=== PATIENT | male | born 1945 | race Caucasian/White ===

== ENCOUNTER 2017-08-23 11:00 | Inpatient (IN) ==
[2017-08-23] MEDS ORDERED: ALBUTEROL/IPRATROPIUM 2.5mg-0.5mg/3ml NEB AEROSOL ONE (11:22)
--- NOTE | 2017-08-23 11:23 | Emergency Department Report ---
General Adult HPI - General Chief complaint: Shortness of Breath/Dyspnea Stated complaint: breathing difficulties Time Seen by Provider: 08/23/17 11:21 Source: patient, EMS Mode of arrival: EMS Limitations: no limitations - History of Present Illness HPI narrative: 72-year-old male presents to the emergency department with a chief complaint of dyspnea. Patient noted onset of symptoms approximately 8:00 this morning upon awakening. Patient states his symptoms increased throughout the day. Patient was 80% on room air with arrival of EMS. Patient has noted a productive cough of clear phlegm over the past several days. He denies any pain or discomfort. Patient was placed on CPAP by EMS prior to arrival to the emergency department with some improvement of symptoms. Patient denies any other complaints or associated symptoms. He was at home when his symptoms began. Symptoms have been persistent in nature since onset. - Related Data Home Medications Medication Instructions Recorded Confirmed Amiodarone [Pacerone] 200 mg PO DAILY #0 08/18/08 08/23/17 Carvedilol 12.5 mg PO DAILY #0 08/18/08 08/23/17 Digoxin 125 mcg PO DAILY #0 08/18/08 08/23/17 Spironolactone [Aldactone] 25 mg PO DAILY #0 08/18/08 08/23/17 diazePAM [Diazepam] 10 mg PO DAILY PRN #0 08/18/08 08/23/17 Albuterol Sulfate 2.5 mg AEROSOL Q4H PRN 08/23/17 08/23/17 Aspirin/Calcium Carbonate/Mag 325 mg PO HS 08/23/17 08/23/17 [Aspirin Buffered 325 mg Tab] Furosemide [Lasix] 40 mg PO BID 08/23/17 08/23/17 Gemfibrozil [Lopid] 600 mg PO BID 08/23/17 08/23/17 Potassium Chloride 10 meq PO DAILY 08/23/17 08/23/17 Allergies Allergy/AdvReac Type Severity Reaction Status Date / Time No Known Drug Allergies Allergy Unknown Verified 08/23/17 12:04 Review of Systems Constitutional: Denies: fever, chills Eyes: Denies: eye pain, vision change ENT: Denies: ear pain, throat pain Cardiovascular: Denies: chest pain, palpitations Respiratory: Reports: cough, dyspnea. Denies: wheezes Gastrointestinal: Denies: abdominal pain, nausea, vomiting, diarrhea Genitourinary: Denies: urgency, dysuria Musculoskeletal: Denies: back pain, arthralgia Integumentary: Denies: erythema, rash Neurological: Denies: headache, numbness Psychiatric: Denies: anxiety, depression Endocrine: Denies: fatigue, polydipsia Hematological/Lymphatic: Denies: easy bleeding, easy bruising Allergic/Immunologic: Denies: facial swelling, urticaria PFSH Patient Stated Medical History Cerebrovascular Accident Yes Cataracts Yes Cardiac Arrhythmia Yes: AFIB Congestive Heart Failure Yes Hypertension Yes Myocardial Infarction Yes Diabetes Mellitus Type 2 Yes Surgical History: CABG Family History: Review and noncontributory - Social History Smoking status: Never smoker Substance use type: does not use Alcohol intake frequency: does not drink Physical Exam - Limitations Limitations: no limitations - General General appearance: alert, in distress (mild respiratory distress) - Normal Exams: Head:: Normocephalic without trauma Eyes:: Pupils are PERRLA w/ EOMI, No scleral icterus, irritation, or foreign bodies noted ENMT:: No facial trauma, nasal exudates, pharyngeal erythema, or exudates are noted Dental: No fractured, loose, or missing teeth noted Neck:: Full range of motion, without adenopathy, JVD, bruits or thyromegaly Chest/Respirations:: Clear all villalobos (diminished lung sounds throughout), with good airflow, and symmetry bilaterally Cardiovascular:: Regular rate and rhythm, without murmur or gallop, Pulses 2+ all extremities, capillary refill, <2 seconds all extremities Abdomen:: Bowel sounds positive, soft, non-tender, non-distended, no hepatosplenomegaly, masses or bruits noted Lymphatic:: No lymphadenopathy, or lymphedema noted (1+ bilateral lower extremity edema.) Musculoskeletal:: No tenderness, or deformity noted, good range of motion, all extremities Integumentary:: No rashes, hives, or bruising noted, hair and nails, without abnormality Neurological:: Patient is alert, and oriented, cranial nerves, motor/sensory/ cerebellar, exams w/o gross deficits, to observation Psychiatric:: Patient exhibits, appropriate attention, emotion and affect Course Vital Signs Temperature 96.8 F 08/23/17 11:00 Pulse Rate 71 08/23/17 11:00 Respiratory Rate 34 H 08/23/17 11:00 Blood Pressure 164/70 H 08/23/17 11:00 Pulse Oximetry 89 L 08/23/17 11:00 Temperature 96.4 F L 08/23/17 14:20 Pulse Rate 70 08/23/17 16:32 Respiratory Rate 24 08/23/17 16:32 Blood Pressure 120/76 08/23/17 16:02 Pulse Oximetry 97 08/23/17 16:32 Medical Decision Making - [facility] Narrative Medical decision making narrative: Labs / imaging were discussed in detail with the patient and questions are answered. Patient is placed on BiPAP in the emergency department with improvement of symptoms. Patient is given DuoNeb treatments upon arrival with improvement of symptoms. Patient is discussed with Dr. Mendes and admitted to the ICU to the hospitalist service in improved condition. Patient was given Lasix 20 mg IM 1. Patient was given Rocephin/Zithromax intravenously with improvement of symptoms. Patient is admitted to the ICU in improved condition. Patient is in agreement with the current plan of management. Patient requests to be a DO NOT RESUSCITATE in the emergency department. Sepsis was considered at 1227 and Rocephin and Zithromax were ordered. Patient did not have a lactate greater than 4 and was not hypotensive in the ED. - Differential Diagnosis COPD exacerbation, pneumonia, CHF, viral syndrome - Lab Data Result diagrams: 08/23/17 11:07 08/23/17 11:07 Lab Results 08/23/17 08/23/17 08/23/17 Range/Units 11:07 11:07 11:46 WBC 13.7 H (4.5-11.0) T/MM3 RBC 5.12 (4.50-5.90) M/MM3 Hgb 15.7 (13.5-17.5) GM/DL Hct 50.7 (41-53) % MCV 99.0 (80-100) UM3 MCH 30.7 (26-34) UUG MCHC 31.0 (31-37) GM/DL RDW Std Deviation 47.1 (36.9-50.2) FL Plt Count 257 (130-400) T/MM3 MPV 11.4 (9.4-12.4) UM3 Immature Gran % (Auto) 0.4 (0.0-0.5) % Neut % (Auto) 67.8 H (33-66) % Lymph % (Auto) 20.9 L (23-45) % [place] % (Auto) 8.8 (0-9.0) % Eos % (Auto) 1.9 (0-4) % Baso % (Auto) 0.2 (0-2) % Neut # (Auto) 9.3 H (1.8-7.7) T/MM3 Lymph # (Auto) 2.9 (1-4.8) T/MM3 [place] # (Auto) 1.2 H (0-0.8) T/MM3 Eos # (Auto) 0.3 (0-0.5) T/MM3 Baso # (Auto) 0.0 (0-0.2) T/MM3 Abs Immat Gran (auto) 0.05 H (0.00-0.03) T/MM3 Turbidity < 20 (0-20) Sodium 146 H (134-144) MEQ/L Potassium 4.6 (3.6-5) MEQ/L Chloride 102 (98-107) MEQ/L Carbon Dioxide 32 H (22-30) MEQ/L Anion Gap 12 (5-15) MEQ/L BUN 18.0 (9-20) MG/DL Creatinine 0.7 L (0.8-1.5) MG/DL GFR Calculation 110 BUN/Creatinine Ratio 26 (6-26) RATIO Glucose 217 H (75-110) MG/DL Calculated Osmolality 290 H (261-280) MOSM/KG Calcium 9.4 (8.4-10.2) MG/DL Total Bilirubin 0.80 (0.20-1.30) MG/DL Icterus Index < 2 (0-7) AST 75 H (17-59) U/L ALT 86 H (21-72) U/L Alkaline Phosphatase 74 (38-126) U/L Troponin I 0.068 (0-0.12) ng/ml B-Natriuretic Peptide 722 H (0-175) pg/mL Total Protein 7.8 (6.3-8.2) G/DL Albumin 4.6 (3.5-5.0) G/DL Globulin 3.2 (2.4-3.6) G/DL Albumin/Globulin Ratio 1.4 (1.1-2.2) RATIO Plasma Lactate Cancelled 2.3 H Procalcitonin NG/ML Specimen Hemolysis < 15 (0-25) 12/24/ Range/Units 11:46 WBC (4.5-11.0) T/MM3 RBC (4.50-5.90) M/MM3 Hgb (13.5-17.5) GM/DL Hct (41-53) % MCV (80-100) UM3 MCH (26-34) UUG MCHC (31-37) GM/DL RDW Std Deviation (36.9-50.2) FL Plt Count (130-400) T/MM3 MPV (9.4-12.4) UM3 Immature Gran % (Auto) (0.0-0.5) % Neut % (Auto) (33-66) % Lymph % (Auto) (23-45) % [place] % (Auto) (0-9.0) % Eos % (Auto) (0-4) % Baso % (Auto) (0-2) % Neut # (Auto) (1.8-7.7) T/MM3 Lymph # (Auto) (1-4.8) T/MM3 [place] # (Auto) (0-0.8) T/MM3 Eos # (Auto) (0-0.5) T/MM3 Baso # (Auto) (0-0.2) T/MM3 Abs Immat Gran (auto) (0.00-0.03) T/MM3 Turbidity (0-20) Sodium (134-144) MEQ/L Potassium (3.6-5) MEQ/L Chloride (98-107) MEQ/L Carbon Dioxide (22-30) MEQ/L Anion Gap (5-15) MEQ/L BUN (9-20) MG/DL Creatinine (0.8-1.5) MG/DL GFR Calculation BUN/Creatinine Ratio (6-26) RATIO Glucose (75-110) MG/DL Calculated Osmolality (261-280) MOSM/KG Calcium (8.4-10.2) MG/DL Total Bilirubin (0.20-1.30) MG/DL Icterus Index (0-7) AST (17-59) U/L ALT (21-72) U/L Alkaline Phosphatase (38-126) U/L Troponin I (0-0.12) ng/ml B-Natriuretic Peptide (0-175) pg/mL Total Protein (6.3-8.2) G/DL Albumin (3.5-5.0) G/DL Globulin (2.4-3.6) G/DL Albumin/Globulin Ratio (1.1-2.2) RATIO Plasma Lactate Procalcitonin < 0.05 NG/ML Specimen Hemolysis (0-25) - Radiology Data Chest x-ray: Potential fluid overload pattern with probable R sided infiltrate. - EKG Data EKG #1 EKG results narrative: Electronic ventricular pacemaker. 72 bpm. No STEMI. Critical Care Time Critical Care Time: Yes Total Critical Care Time: 47 Attestation: 47 minutes of critical care time was assessed to the patient as the patient was placed on BiPAP and maintained on BiPAP during his emergency department stay. Patient required repeated assessment at the bedside, complex medical decision making, and had potential for decompensation. Critical care time was spent treating the patient, documenting the medical record, updating family, and making telephone calls on the patient's behalf. Disposition Clinical Impression: Community acquired pneumonia Qualifiers: Laterality: unspecified laterality Qualified Code(s): J18.9 - Pneumonia, unspecified organism Disposition: 02 To [facility] [place] Acute Care Condition: Stable for Transport Time of Disposition: 12:30 (Admit. Dr. Mendes. ) - Seen By: physician
[2017-08-23] MEDS ORDERED: AZITHROMYCIN IV 500 MG in NS 250ml 250 ML IV ONE (12:27)
[2017-08-23] MEDS ORDERED: FUROSEMIDE 20 MG/2 ML INJECTION IVP ONE (12:27)
[2017-08-23] MEDS ORDERED: CEFTRIAXONE (ER USE ONLY) 1 GM in NS 100 ML IV ONE (12:27)
[2017-08-23] MEDS: SALINE FLUSH 10ml SYRINGE IVF PRN (13:12)
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
[2017-08-23] MEDS ORDERED: NS 1,000 ML IV SCH (14:45)
[2017-08-23] MEDS: ALBUTEROL/IPRATROPIUM 2.5mg-0.5mg/3ml NEB AEROSOL SCH ×2 (15:32→20:10)
[2017-08-23] MEDS: 1/2 NS 1,000 ML IV SCH (16:00)
[2017-08-23] MEDS: BUDESONIDE INH.SOLN 0.5mg/2ml NEB AEROSOL SCH (20:10)
[2017-08-24] MEDS: 1/2 NS 1,000 ML IV SCH (03:01)
[2017-08-24] MEDS: ALBUTEROL/IPRATROPIUM 2.5mg-0.5mg/3ml NEB AEROSOL SCH ×4 (06:55→22:10)
[2017-08-24] MEDS: BUDESONIDE INH.SOLN 0.5mg/2ml NEB AEROSOL SCH ×2 (06:55→22:10)
[2017-08-24] MEDS: SPIRONOLACTONE 25 MG TABLET PO SCH (10:36)
[2017-08-24] MEDS: CARVEDILOL 12.5 MG TABLET PO SCH (10:37)
[2017-08-24] MEDS: AMIODARONE 200 MG TABLET PO SCH (10:37)
[2017-08-24] MEDS: DIGOXIN 125 MCG TABLET PO SCH (10:37)
[2017-08-24] MEDS ORDERED: DEXTROSE 50% SYRINGE 50ml (1 AMP) IVP PRN (12:17)
[2017-08-24] MEDS ORDERED: GLUCOSE ORAL GEL 40% 37.5gm PO PRN (12:17)
--- NOTE | 2017-08-24 12:24 | Progress Note ---
- Date 08/24/17 Subjective: The patient is seen today in his room. He required BiPAP overnight. When I talk to him he was on 5 L high flow nasal cannula with saturations in the mid 90s. Yesterday he only required 2 L. He feels like he breathes better on the BiPAP. He continues to have a nonproductive cough which is chronic. He denies chest pain. He denies pain anywhere. He states he ate a good breakfast. He denies any nausea or diarrhea. He has history of CABG requiring veins to be taken from his bilateral lower arms and therefore has rate difficulty with obtaining blood draws. He states usually his blood is drawn from his hand. Recently we have been doing just fingersticks which I think has been making the blood work inaccurate. Objective Vital signs: Temperature 97.8 F 08/24/17 00:00 Pulse Rate 69 08/24/17 10:37 Respiratory Rate 34 H 08/24/17 11:14 Blood Pressure 195/73 H 08/24/17 07:01 Pulse Oximetry 97 08/24/17 11:14 Height/Weight/BMI: Height 1.78 m Weight 100.3 kg Body Mass Index 31.7 Comments: Blood pressure 148/66, pulse 69, O2 sat 98% on BiPAP GEN-alert, 3-4 word conversational dyspnea HEENT-sclera anicteric, oropharynx is dry, possibly from BiPAP NECK-supple, no JVD CV-regular rate and rhythm, paced rhythm CHEST-mild crackles in the bases, no rhonchi ABD-soft, obese, nontender with positive bowel sounds -no Peacock EXT-mild bilateral pedal edema, more so on the left than the right and this is chronic NEURO-no focal deficits SKIN-warm and dry Results - Labs CBC & Chem 7: 08/24/17 06:20 08/24/17 07:24 Labs: Blood was drawn via fingerstick. I think this may be making it inaccurate. Viral respiratory panel was negative. Sputum shows gram-positive cocci in pairs AST and ALT are trending down D-dimer was less than 150 Lactate was 2.3 and increased to 3.8 and now is back down to 2.3 Blood sugar this morning was 224 Microbiology Results: Microbiology 08/23/17 16:50 Sputum, Expectorated Gram Stain - Final 08/23/17 16:50 Sputum, Expectorated Sputum Culture - Preliminary Early growth 08/23/17 13:09 Peripheral/Iv Start Blood Culture - Preliminary Culture Initiated - Results Pending - ABG Interpretation ABG results: 08/23/17 15:25 ABG pH 7.370 ABG pCO2 59 H ABG pO2 93 ABG HCO3 34 H ABG Total CO2 35.9 H ABG O2 Saturation 97.0 ABG Base Excess 7.1 H - Impressions Chest x-ray on my read reveals some mild patchy infiltrates which look to be better compared to yesterday Assessment and Plan Assessment and Plan: Impression Acute hypoxic and hypercapnic respiratory failure-hypercapnia appears to be compensated at this time Possible early pneumonia-patient does have a cough but it is chronic Probable COPD. Possible COPD exacerbation Severe sepsis with elevated lactate and acute hypoxic respiratory failure, tachypnea, leukocytosis Known coronary artery disease with hx of TN and cabg type 2 diabetes mellitus with hyperglycemia Mild hypernatremia-resolved History of A. fib Elevated transaminases Possible thrombocytopenia-not receiving heparin or Lovenox, likely erroneous due to to finger stick for lab draw Elevated blood pressure Plan Continue Breathing treatments, Rocephin and Zithromax, BiPAP Start IV steroids Monitor Accu-Cheks and give sliding scale insulin as needed. We'll check a d-dimer today Restart diuretics. Consider DC IV fluids. Echocardiogram tomorrow PT OT eval and treat Recheck CBC and basic metabolic profile Continue with CCU for now Greater than 40 minutes of critical care time spent seeing and evaluating the patient - Physician Narrative Narrative: Date: 08/24/17 Time: 1220 Hospital Course Summary Disclaimer: The visit summary below is not to be considered part of the above Progress Note. Hospital Course: 08/23/17 Impression Sepsis- Leukocytosis, Elevated lactate, Hypoxia, Tachypneic Acute respiratory failure with hypoxia Elevated venous Lactate Elevated LFTs Hypernatremia- POA- 146 CAD with TN history Hypertension Type 2 DM A-Fib Plan Admit patient to inpatient status under the care of Dr. Mendes for sepsis, acute respiratory failure with hypoxia Initial lactate was elevated at 2.3. Will recheck serial lactate levels as per sepsis protocol Blood cultures were obtained in the emergency room. We will also obtain a sputum culture She has been on BiPAP during his stay in the emergency room. He was able to be weaned down to 30%. We will take him off BiPAP for transfer to the ICU. Would like to obtain an ABG at 1500. Dental DuoNeb 4 times a day and Pulmicort twice a day nebulizers 1/2 NS at 100ml/hr for gentle hydration He was given one time lasix dose of 20 mg while in the ER. He normally takes 40 milligrams of Lasix twice a day and Aldactone 25 daily. Will discuss further diuretic with attending. Monitor patient. Cardiac telemetry given coronary artery disease and history of atrial fibrillation. Will continue on normal. Amiodarone, digoxin and Coreg Lovenox SQ daily for DVT prophylaxis. Patient does wish to be a do not resuscitate and this orders written. Will discuss further orders and plan of care with attending, Dr Mendes At time of discharge medical care will return to primary care provider at the [facility]
[2017-08-24] MEDS: INSULIN ASPART 100unit/ml INJECTION SQ PRN ×2 (14:12→20:41)
[2017-08-24] MEDS: METHYLPREDNISOLONE SOD SUCC 125mg/2ml INJECTION IVP SCH (14:12)
[2017-08-24] MEDS: FUROSEMIDE 40 MG TABLET PO SCH ×2 (14:14→20:41)
[2017-08-24] MEDS: CEFTRIAXONE 1 G in NS 100 ML IV SCH (15:56)
[2017-08-24] MEDS: GEMFIBROZIL 600 MG TABLET PO SCH (17:44)
[2017-08-25] MEDS: METHYLPREDNISOLONE SOD SUCC 125mg/2ml INJECTION IVP SCH ×3 (00:20→17:51)
[2017-08-25] MEDS: INSULIN ASPART 100unit/ml INJECTION SQ PRN ×3 (05:52→21:24)
[2017-08-25] MEDS: BUDESONIDE INH.SOLN 0.5mg/2ml NEB AEROSOL SCH ×2 (07:37→20:55)
[2017-08-25] MEDS: ALBUTEROL/IPRATROPIUM 2.5mg-0.5mg/3ml NEB AEROSOL SCH ×4 (07:37→20:54)
--- NOTE | 2017-08-25 08:02 | XRay Report ---
Indication: sob PROCEDURE: XR chest 1V: Encounter: Initial Comparison: None Findings: Increased interstitial markings bilaterally with hazy opacities in both lower lobes. Overlying monitoring leads. Left pacemaker defibrillator. Postoperative changes of prior CABG. Incidental note is made of an azygos fissure. No pneumothorax or definite pleural effusion. Cardiac silhouette is moderately enlarged. Mediastinal contours are within normal limits. Pulmonary vascularity is prominent. Impression: Mild to moderate pulmonary edema. Atelectasis or developing pneumonia in the lower lobes is possible. .
[2017-08-25] MEDS: GEMFIBROZIL 600 MG TABLET PO SCH ×2 (08:15→17:52)
--- NOTE | 2017-08-25 08:25 | XRay Report ---
Indication: possible pneumonia, resp failure PROCEDURE: XR chest 1V: Encounter: Initial Comparison: August 23, 2017 Findings: Increasing airspace disease in the right lower lobe. Hazy groundglass opacity in the right upper lobe as well. No pneumothorax or definite effusion. Left basilar atelectasis is more prominent. Cardiac silhouette remains enlarged. Mediastinal contours are stable. Pulmonary vascularity remains mildly prominent. Left pacemaker defibrillator and post sternotomy changes. Impression: Increasing right-sided airspace disease. .
[2017-08-25] MEDS: AMIODARONE 200 MG TABLET PO SCH (08:46)
[2017-08-25] MEDS: FUROSEMIDE 40 MG TABLET PO SCH ×2 (08:46→21:30)
[2017-08-25] MEDS: CARVEDILOL 12.5 MG TABLET PO SCH (08:47)
[2017-08-25] MEDS: DIGOXIN 125 MCG TABLET PO SCH (08:47)
[2017-08-25] MEDS: ASPIRIN, BUFFERED 325 MG TABLET PO SCH ×2 (08:49→21:29)
--- NOTE | 2017-08-25 10:31 | Progress Note ---
- Date 08/25/17 Subjective: Patient is seen in CCU this morning. He tolerated BiPAP all night. He states he feels better this morning than he has felt in a very long time. He cannot be very specific about in what way he is feeling better. He does feel like he is breathing better and has more energy. He denies any chest discomfort and has not had any pain this admission. He is eating and drinking well. He is urinating without difficulties. He states he has not had a bowel movement but does not want any medication for constipation at this time. Objective Vital signs: Temperature 97.5 F 08/25/17 04:00 Pulse Rate 70 08/25/17 08:47 Respiratory Rate 22 08/25/17 07:38 Blood Pressure 128/60 08/25/17 04:00 Pulse Oximetry 98 08/25/17 07:38 Height/Weight/BMI: Height 1.78 m Weight 104 kg Body Mass Index 31.7 Comments: O2 sat is 96% on 4 L. Heart rate 79. Blood pressure 120s to 160s. The patient was observed walking in the hallways with PT and did fairly well with a walker. GEN-alert, oriented, no acute distress CV-regular rate and rhythm CHEST-mild coarse breath sounds on the left, scattered wheezes ABD-soft, nontender with positive bowel sounds -no Peacock EXT-no edema NEURO-generalized weakness, no focal deficits SKIN-warm and dry and without rashes Results - Labs CBC & Chem 7: 08/25/17 04:29 08/25/17 07:18 Microbiology Results: Microbiology 08/23/17 16:50 Sputum, Expectorated Gram Stain - Final 08/23/17 16:50 Sputum, Expectorated Sputum Culture - Preliminary 08/23/17 13:09 Peripheral/Iv Start Blood Culture - Preliminary No Growth After 1 Day - ABG Interpretation ABG results: 08/23/17 15:25 ABG pH 7.370 ABG pCO2 59 H ABG pO2 93 ABG HCO3 34 H ABG Total CO2 35.9 H ABG O2 Saturation 97.0 ABG Base Excess 7.1 H Assessment and Plan Assessment and Plan: Impression Acute hypoxic and hypercapnic respiratory failure-hypercapnia appears to be compensated at this time Community-acquired pneumonia-Rocephin initiated. He received 1 dose of azithromycin. This was not continued because of possible interaction with amiodarone. Probable COPD. Possible COPD exacerbation Probable chronic CO2 retention. Patient may benefit from BiPAP at night. Severe sepsis with elevated lactate and acute hypoxic respiratory failure, tachypnea, leukocytosis Known coronary artery disease with hx of PR and cabg type 2 diabetes mellitus with hyperglycemia-worse today with steroids Mild hypernatremia-resolved History of A. fib Elevated transaminases Possible thrombocytopenia-likely falsely low secondary to fingerstick drop. Platelets are fine today. Elevated blood pressure Plan Re: Pneumonia and probable COPD exacerbation, Continue Breathing treatments, Rocephin, BiPAP Change to oral steroids. Increase insulin for hyperglycemia with steroids Echocardiogram is pending PT OT eval and treat Recheck CBC and CMP in the morning Overall, patient is doing much better. Will transfer to the floor today. Consult pulmonology regarding chronic CO2 retention Monitor for fluid overload Resuscitation Status: Do Not Resuscitate - Time spent with patient Time with patient PN: 30 minutes - Physician Narrative Physician: Jing Ward MD Narrative: Date: 08/25/17 Time: 1028 Hospital Course Summary Disclaimer: The visit summary below is not to be considered part of the above Progress Note. Hospital Course: 08/23/17 Impression Sepsis- Leukocytosis, Elevated lactate, Hypoxia, Tachypneic Acute respiratory failure with hypoxia Elevated venous Lactate Elevated LFTs Hypernatremia- POA- 146 CAD with PR history Hypertension Type 2 DM A-Fib Plan Admit patient to inpatient status under the care of Dr. Mendes for sepsis, acute respiratory failure with hypoxia Initial lactate was elevated at 2.3. Will recheck serial lactate levels as per sepsis protocol Blood cultures were obtained in the emergency room. We will also obtain a sputum culture She has been on BiPAP during his stay in the emergency room. He was able to be weaned down to 30%. We will take him off BiPAP for transfer to the ICU. Would like to obtain an ABG at 1500. Dental DuoNeb 4 times a day and Pulmicort twice a day nebulizers 1/2 NS at 100ml/hr for gentle hydration He was given one time lasix dose of 20 mg while in the ER. He normally takes 40 milligrams of Lasix twice a day and Aldactone 25 daily. Will discuss further diuretic with attending. Monitor patient. Cardiac telemetry given coronary artery disease and history of atrial fibrillation. Will continue on normal. Amiodarone, digoxin and Coreg Lovenox SQ daily for DVT prophylaxis. Patient does wish to be a do not resuscitate and this orders written. Will discuss further orders and plan of care with attending, Dr Mendes At time of discharge medical care will return to primary care provider at the [facility]
--- NOTE | 2017-08-25 12:29 | Pulmonology Consult Note ---
<JuliannEllen Donny - Last Filed: 08/25/17 12:21> History of Present Illness Consult date: 08/25/17 Reason for consult: cough, COPD Chief complaint: SOB History of present illness: This is a 72 yr old male who states he woke up on the day of admit with shortness of breath. States he has never jaren diagnosed with COPD but has at least a 150 pyh. He called EMS, on arrival his sats on RA were 80% and he was started on oxygen and brought to the [place] ER. States he has proventil at home he uses prn but no oxygen. On admit his WBC was 13.7, Na 146, glucose 217, troponin 0.068. Digoxin 1.5. CXR showed right infiltrates and he was started on rocephin and azithromycin along with pulmicort BID, a/a QID and solumedrol. He was also placed on BiPAP for support, ABG was 7.3/59/93. We have been consulted for his respiratory issues and appreciate the consult. Review of Systems - Constitutional Constitutional: Present: as per HPI - EENT Nose: Absent: as per HPI, change in smell, pain, nosebleeds, foreign body, obstruction, allergies, other Mouth/Throat: Absent: mucosa moist, mucosa dry, normal dentition, poor dentition , enlarged tonsils, exudative tonsils, surgically absent tonsils, post-nasal discharge, other - Cardiovascular Cardiovascular: Present: dyspnea on exertion - Respiratory Respiratory: Present: cough, dyspnea, dyspnea on exertion, chest congestion - Gastrointestinal Gastrointestinal: Present: as per HPI - Genitourinary Genitourinary: Present: as per HPI - Musculoskeletal Musculoskeletal: Present: as per HPI - Integumentary/Breasts Integumentary: Present: as per HPI Breasts: as per HPI - Neurological Neurological: Present: as per HPI - Psychiatric Psychiatric: Present: as per HPI - Endocrine Endocrine: Present: as per HPI - Hematologic/Lymphatic Hematologic/Lymphatic: Present: as per HPI - Allergic/Immunologic Allergic/Immunologic: Present: as per HPI PFSH Patient Stated Medical History Cerebrovascular Accident Yes Cataracts Yes Cardiac Arrhythmia Yes: AFIB Congestive Heart Failure Yes Hypertension Yes Myocardial Infarction Yes Diabetes Mellitus Type 2 Yes Surgical History: CABG - Social History Smoking status: Former smoker Substance use type: does not use Current occupational status: unemployed Current residence: Apartment/Private Home Medications Home Medications Medication Instructions Recorded Confirmed Type Amiodarone [Pacerone] 200 mg PO DAILY #0 08/18/08 08/23/17 History Carvedilol 12.5 mg PO DAILY #0 08/18/08 08/23/17 History Digoxin 125 mcg PO DAILY #0 08/18/08 08/23/17 History Spironolactone [Aldactone] 25 mg PO DAILY #0 08/18/08 08/23/17 History diazePAM [Diazepam] 10 mg PO DAILY PRN #0 08/18/08 08/23/17 History Albuterol Sulfate 2.5 mg AEROSOL Q4H PRN 08/23/17 08/23/17 History Aspirin/Calcium Carbonate/Mag 325 mg PO HS 08/23/17 08/23/17 History [Aspirin Buffered 325 mg Tab] Furosemide [Lasix] 40 mg PO BID 08/23/17 08/23/17 History Gemfibrozil [Lopid] 600 mg PO BID 08/23/17 08/23/17 History Potassium Chloride 10 meq PO DAILY 08/23/17 08/23/17 History Allergies Allergy/AdvReac Type Severity Reaction Status Date / Time No Known Drug Allergies Allergy Unknown Verified 08/23/17 12:04 Exam Vital signs: Temperature 97.5 F 08/25/17 04:00 Pulse Rate 70 08/25/17 08:47 Respiratory Rate 18 08/25/17 10:46 Blood Pressure 128/60 08/25/17 04:00 Pulse Oximetry 98 08/25/17 10:46 - Constitutional no acute distress, obese - Routine HEENT Exam Head: Present: normocephalic, atraumatic Eye: Present: EOMI, PERRL ENT: Present: mucous membranes moist - Routine Neck Exam Present: supple, full ROM - Routine Respiratory Exam Present: decreased breath sounds - Routine Cardiovascular Exam Present: RRR, S1, S2, no murmur - Routine Abdominal Exam Present: soft, normoactive bowel sounds - Routine Extremities Exam Present: no edema, non tender, full ROM - Routine Back/Spine/Pelvis Exam Back/Spine: Present: full ROM - Routine Skin Exam Present: dry - Routine Neurological Exam Present: alert, oriented X3, CN II-XII intact - Routine Psychiatric Exam Present: normal affect, normal thought process Results - Laboratory Findings CBC and BMP: 08/25/17 04:29 08/25/17 07:18 ABG ABG pH 7.370 (7.350-7.450) 08/23/17 15:25 ABG pCO2 59 MMHG (34-45) H 08/23/17 15:25 ABG pO2 93 MMHG (80-100) 08/23/17 15:25 ABG O2 Saturation 97.0 % (95.0-98.0) 08/23/17 15:25 PT/INR, D-dimer D-Dimer < 150 NG/ML (0-230) 08/23/17 16:01 Abnormal lab findings: Abnormal Labs 08/23/17 08/23/17 08/23/17 15:25 16:01 21:12 WBC Hct Plt Count Neutrophils % (Manual) Lymphocytes % (Manual) Reactive Lymphs % Metamyelocytes % Neutrophils # (Manual) Abs React Lymphs (Man) Monocytes # (Manual) ABG pCO2 59 H ABG HCO3 34 H ABG Total CO2 35.9 H ABG Base Excess 7.1 H Potassium Chloride Carbon Dioxide Creatinine BUN/Creatinine Ratio Glucose ALT Plasma Lactate 3.8 H 2.3 H Specimen Hemolysis 08/24/17 08/24/17 08/25/17 06:20 07:24 04:29 WBC 17.6 H Hct 53.5 H Plt Count 90 L D Neutrophils % (Manual) 77.0 H 75.0 H Lymphocytes % (Manual) 7.0 L 11.0 L Reactive Lymphs % 3.0 H Metamyelocytes % 1.0 H Neutrophils # (Manual) 13.6 H Abs React Lymphs (Man) 0.3 H Monocytes # (Manual) 1.6 H ABG pCO2 ABG HCO3 ABG Total CO2 ABG Base Excess Potassium 5.4 H Chloride Carbon Dioxide Creatinine 0.6 L BUN/Creatinine Ratio 27 H Glucose 224 H ALT 76 H Plasma Lactate Specimen Hemolysis 62 H 08/25/17 08/25/17 04:29 07:18 WBC Hct Plt Count Neutrophils % (Manual) Lymphocytes % (Manual) Reactive Lymphs % Metamyelocytes % Neutrophils # (Manual) Abs React Lymphs (Man) Monocytes # (Manual) ABG pCO2 ABG HCO3 ABG Total CO2 ABG Base Excess Potassium 6.7 H* D Chloride 97 L Carbon Dioxide 33 H Creatinine 0.5 L 0.6 L BUN/Creatinine Ratio 30 H 27 H Glucose 225 H 286 H ALT Plasma Lactate Specimen Hemolysis 77 H - Diagnostic Findings Chest x-ray: image reviewed (CXR Right infiltrates) Assessment and Plan - Assessment and Plan Acute Hypoxic Respiratory Failure COPD exacerbation CAP Hx of afib on amio Plan: Pt currently on O2 at 3L per NC, tolerating (no O2 at home), wean to keep sats 90-95%. Used bipap last noc and tolerated well, willing to use at home on f12, 13/12. Currently on pulmicort BID, A/A QID, solumedrol 60 q8, wean to q12, no wheezing noted. On Rocephin fo pna, azithro stopped 2/ poss reaction to amio, CXR still with R infiltrate noted 08/24. Pt will OP follow up with our clininc and have a full PFT completed. Will continue to follow. - Time Spent With Patient Total time spent is greater than 50% in coordination of care (as documented) at patient's floor/unit and/or counseling patient: less than 15 minutes <Jacques Beard - Last Filed: 08/25/17 13:04> History of Present Illness History of present illness: He lives alone in [facility] in [place]. He has COPD after long smoking history. He is admitted with dyspnea related to COPD exacerbation [facility] Patient Stated Medical History Cerebrovascular Accident Yes Cataracts Yes Cardiac Arrhythmia Yes: AFIB Congestive Heart Failure Yes Hypertension Yes Myocardial Infarction Yes Diabetes Mellitus Type 2 Yes Exam Vital signs: Temperature 97.5 F 08/25/17 04:00 Pulse Rate 70 08/25/17 08:47 Respiratory Rate 18 08/25/17 10:46 Blood Pressure 128/60 08/25/17 04:00 Pulse Oximetry 98 08/25/17 10:46 Results - Laboratory Findings CBC and BMP: 08/25/17 04:29 08/25/17 07:18 ABG ABG pH 7.370 (7.350-7.450) 08/23/17 15:25 ABG pCO2 59 MMHG (34-45) H 08/23/17 15:25 ABG pO2 93 MMHG (80-100) 08/23/17 15:25 ABG O2 Saturation 97.0 % (95.0-98.0) 12/24/17 15:25 PT/INR, D-dimer D-Dimer < 150 NG/ML (0-230) 08/23/17 16:01 Abnormal lab findings: Abnormal Labs 08/23/17 08/23/17 08/23/17 15:25 16:01 21:12 WBC Hct Plt Count Neutrophils % (Manual) Lymphocytes % (Manual) Reactive Lymphs % Metamyelocytes % Neutrophils # (Manual) Abs React Lymphs (Man) Monocytes # (Manual) ABG pCO2 59 H ABG HCO3 34 H ABG Total CO2 35.9 H ABG Base Excess 7.1 H Potassium Chloride Carbon Dioxide Creatinine BUN/Creatinine Ratio Glucose ALT Plasma Lactate 3.8 H 2.3 H Specimen Hemolysis 08/24/17 08/24/17 08/25/17 06:20 07:24 04:29 WBC 17.6 H Hct 53.5 H Plt Count 90 L D Neutrophils % (Manual) 77.0 H 75.0 H Lymphocytes % (Manual) 7.0 L 11.0 L Reactive Lymphs % 3.0 H Metamyelocytes % 1.0 H Neutrophils # (Manual) 13.6 H Abs React Lymphs (Man) 0.3 H Monocytes # (Manual) 1.6 H ABG pCO2 ABG HCO3 ABG Total CO2 ABG Base Excess Potassium 5.4 H Chloride Carbon Dioxide Creatinine 0.6 L BUN/Creatinine Ratio 27 H Glucose 224 H ALT 76 H Plasma Lactate Specimen Hemolysis 62 H 08/25/17 08/25/17 04:29 07:18 WBC Hct Plt Count Neutrophils % (Manual) Lymphocytes % (Manual) Reactive Lymphs % Metamyelocytes % Neutrophils # (Manual) Abs React Lymphs (Man) Monocytes # (Manual) ABG pCO2 ABG HCO3 ABG Total CO2 ABG Base Excess Potassium 6.7 H* D Chloride 97 L Carbon Dioxide 33 H Creatinine 0.5 L 0.6 L BUN/Creatinine Ratio 30 H 27 H Glucose 225 H 286 H ALT Plasma Lactate Specimen Hemolysis 77 H Assessment and Plan (1) Acute and chronic respiratory failure with hypercapnia Status: Acute Assessment and plan: BIPAP at night and prn. It remains to be seen whether he will require a home vent for discharge. We will continue O2 to keep sat 90-95%. Current Visit: Yes (2) COPD exacerbation Status: Acute Current Visit: Yes - Time Spent With Patient Total time spent is greater than 50% in coordination of care (as documented) at patient's floor/unit and/or counseling patient: less than 15 minutes
[2017-08-25] MEDS: ENOXAPARIN 40 MG/0.4 ML INJECTION SQ SCH (14:48)
[2017-08-25] MEDS: CEFTRIAXONE 1 G in NS 100 ML IV SCH (16:16)
[2017-08-25] MEDS: SALINE FLUSH 10ml SYRINGE IVF PRN (17:51)
[2017-08-25] MEDS ORDERED: FALL RISK - PHARMACY CONSULT MC ONE (23:17)
[2017-08-26] MEDS: METHYLPREDNISOLONE SOD SUCC 125mg/2ml INJECTION IVP SCH ×2 (01:11→08:51)
[2017-08-26] MEDS: INSULIN ASPART 100unit/ml INJECTION SQ PRN ×7 (06:16→20:20)
[2017-08-26] MEDS: GEMFIBROZIL 600 MG TABLET PO SCH ×2 (06:44→17:27)
[2017-08-26] MEDS: BUDESONIDE INH.SOLN 0.5mg/2ml NEB AEROSOL SCH ×2 (07:46→19:48)
[2017-08-26] MEDS: ALBUTEROL/IPRATROPIUM 2.5mg-0.5mg/3ml NEB AEROSOL SCH ×4 (07:46→19:48)
--- NOTE | 2017-08-26 08:37 | XRay Report ---
INDICATION: pneumonia PROCEDURE: CHEST 2-VIEWS UPRIGHT (PA & LAT) Encounter: Initial COMPARISON: August 24, 2017 FINDINGS: Improving aeration of the right lung with decreasing density of consolidation. Persistent bilateral lower lobe infiltrates with small effusions. No pneumothorax or worsening airspace disease. Cardiac silhouette remains enlarged. Left pacemaker defibrillator and poststernotomy changes. Mediastinal contours are stable. Pulmonary vascular congestion has improved. Impression: Improving pneumonia with decreasing edema. .
[2017-08-26] MEDS: FUROSEMIDE 40 MG TABLET PO SCH ×2 (08:50→20:21)
[2017-08-26] MEDS: AMIODARONE 200 MG TABLET PO SCH (08:50)
[2017-08-26] MEDS: SPIRONOLACTONE 25 MG TABLET PO SCH (08:51)
[2017-08-26] MEDS: DIGOXIN 125 MCG TABLET PO SCH (08:51)
[2017-08-26] MEDS: ENOXAPARIN 40 MG/0.4 ML INJECTION SQ SCH (08:51)
[2017-08-26] MEDS: CARVEDILOL 12.5 MG TABLET PO SCH (08:51)
--- NOTE | 2017-08-26 10:45 | Pulmonology Progress Note ---
Subjective Principal diagnosis: COPD exac, pna Interval history: Pt in bed, states he felt better yesterday, does have some SOB when his O2 is off and he moves around. Some cough and sputum noted. States he used the bipap for half the night. Exam Vital signs: Temperature 96.8 F 08/26/17 07:30 Pulse Rate 78 08/26/17 08:51 Respiratory Rate 16 08/26/17 07:47 Blood Pressure 112/58 08/26/17 07:30 Pulse Oximetry 98 08/26/17 07:47 - Constitutional no acute distress, obese - Routine HEENT Exam Head: Present: normocephalic, atraumatic Eye: Present: EOMI, PERRL - Routine Neck Exam Present: supple, full ROM, trachea midline - Routine Respiratory Exam Present: decreased breath sounds - Routine Cardiovascular Exam Present: RRR, S1, S2, no murmur - Routine Abdominal Exam Present: soft, normoactive bowel sounds - Routine Extremities Exam Present: edema, non tender, full ROM - Routine Back/Spine/Pelvis Exam Back/Spine: Present: full ROM - Routine Skin Exam Present: intact, dry - Routine Neurological Exam Present: alert, oriented X3, CN II-XII intact - Routine Psychiatric Exam Present: normal affect, normal thought process Assessment and Plan - Assessment and Plan Acute Hypoxic Respiratory Failure COPD exacerbation CAP Hx of afib on amio Plan: Pt currently on O2 at L per NC, tolerating (no O2 at home), wean to keep sats 90 -95%. Used bipap for a few hrs last night, cont to encourage use, f12, 15/4. Currently on pulmicort BID, A/A QID, solumedrol 60 q8, wean to q12, no wheezing noted. On Rocephin for pna, azithro stopped 2/2 poss reaction to amio, CXR still with R infiltrate but improving. Pt will need OP follow up with our clinic and have a full PFT completed. Will continue to follow. - Time Spent With Patient Total time spent is greater than 50% in coordination of care (as documented) at patient's floor/unit and/or counseling patient: less than 15 minutes
[2017-08-26] MEDS ORDERED: FUROSEMIDE 40 MG/4 ML INJECTION IVP ONE (13:22)
[2017-08-26] MEDS: INSULIN ASPART 100unit/ml INJECTION SQ SCH ×2 (13:23→17:27)
--- NOTE | 2017-08-26 13:31 | Progress Note ---
- Date 08/26/17 Subjective: Chapito is seen today in follow up for his acute hypoxic respiratory failure, CAP and COPD exacerbation. He is seen while sitting on the edge of his bed, watching TV. He reports that he is feeling grumpy today and not as good as yesterday, though is unable to specify why. Nursing contacted Dr. Mendes due to concerns about possible confusion after he was awakened from a nap earlier today. No confusion or altered mental status noted on exam. He complains of persistent cough which he states is now more dry than previously and he is unable to get the sputum up. He denies any fevers, chill, chest pain, abdominal pain, nausea, vomiting or dysuria. His appetite is improving and stable. He has not had a bowel movement since admission (3 days) but states that is not abnormal for him. He does admit to passing gas. He has been seen and evaluated by Dr. Trimble's group who recommended to continue to wean his current oxygen use to maintain an SAO2 at 90-95% as he does not use oxygen at home and to continue to encourage use of BiPAP. Nursing reports that he only wore his BiPAP for part of the night last night and he states it was because his mouth was so dry. Labs were reviewed and reveal hyperglycemia with blood sugars >300. He has a reported history of diabetes which he states he manages with his diet only, no medications and checks his BGM about every 3 days with an average around 150. Objective Vital signs: Temperature 96.8 F 08/26/17 07:30 Pulse Rate 71 08/26/17 12:00 Respiratory Rate 18 08/26/17 12:00 Blood Pressure 136/68 08/26/17 12:00 Pulse Oximetry 95 08/26/17 12:00 Rhythm: Atrial Fibrillation with Normal Ventricular Rate Height/Weight/BMI: Height 5 ft 10 in Weight 232 lb 12.93 oz Body Mass Index 32.8 Comments: Telemetry - paced rhythm at 72 bpm. - Constitutional Present: no acute distress, well nourished, well developed, obese, cooperative Comments: Initially patient is katrin and mildly argumentative on exam, but attitude improves throughout exam with patient smiling and joking. - Routine HEENT Exam Head: Present: normocephalic, atraumatic Eye: Present: PERRL. Absent: conjunctival icterus ENT: Present: mucous membranes dry, dentition normal - Routine Respiratory Exam Present: decreased breath sounds (left base more decreased as compared to right) , diminished air movement. Absent: accessory muscle use, dyspnea, respiratory distress, wheezes Comments: occasional non-productive cough on exam; no conversational dyspnea or distress noted. - Routine Cardiovascular Exam Present: RRR, S1, S2 - Routine Abdominal Exam Present: soft, normoactive bowel sounds, non tender. Absent: guarding, rigid - Routine Extremities Exam Present: edema (1+ bilateral lower extremities), non tender, pulses intact - Routine Back/Spine/Pelvis Exam Back/Spine: Present: full ROM. Absent: vertebral tenderness - Routine Musculoskeletal Exam Musculoskeletal: Present: no tenderness, moving extremities well - Routine Skin Exam Present: intact, dry, warm. Absent: jaundice Comments: afebrile. - Routine Neurological Exam Present: alert, oriented X3, moving all extremities, hearing grossly intact, normal speech. Absent: altered mental status - Routine Lymphatic Exam Lymphatic: Absent: lymphedema - Routine Psychiatric Exam Present: normal affect, normal thought process, cooperative Results - Labs CBC & Chem 7: 08/26/17 04:12 08/26/17 04:12 Microbiology Results: Microbiology 08/23/17 13:09 Peripheral/Iv Start Blood Culture - Preliminary No Growth After 3 Days 08/23/17 16:50 Sputum, Expectorated Gram Stain - Final 08/23/17 16:50 Sputum, Expectorated Sputum Culture - Final Normal Respiratory Erwin Streptococcus viridans group 08/23/17 16:50 Urine Legionella Urinary Antigen - Final 08/23/17 16:50 Urine Streptococcus pneumoniae Antigen (M - Final - Echocardiogram Echocardiogram: 08/25/17 - Echocardiogram. -EF 55-60% with right atrial enlargement. -Mild-moderate mitral regurg. -Mild , AR and TR. -IVC noted to be mildly dilated concerning for fluid overload. -PAP 40-45. - Imaging and Cardiology Chest x-ray Status: image reviewed by me Additional comments: Date of Exam: 08/26/17 Type of Exam(s): XR chest 2V Reason for Exam(s): pneumonia FINDINGS: Improving aeration of the right lung with decreasing density of consolidation. Persistent bilateral lower lobe infiltrates with small effusions. No pneumothorax or worsening airspace disease. Cardiac silhouette remains enlarged. Left pacemaker defibrillator and poststernotomy changes. Mediastinal contours are stable. Pulmonary vascular congestion has improved. Impression: Improving pneumonia with decreasing edema. Assessment and Plan Assessment and Plan: Impression Acute hypoxic and hypercapnic respiratory failure-hypercapnia appears to be compensated at this time Community-acquired pneumonia-Rocephin initiated. He received 1 dose of azithromycin. This was not continued because of possible interaction with amiodarone. Probable COPD. Possible COPD exacerbation Probable chronic CO2 retention. Patient may benefit from BiPAP at night. Severe sepsis with elevated lactate and acute hypoxic respiratory failure, tachypnea, leukocytosis Known coronary artery disease with hx of MA and cabg type 2 diabetes mellitus with hyperglycemia-worse today with steroids Mild hypernatremia-resolved History of A. fib Elevated transaminases Possible thrombocytopenia-likely falsely low secondary to fingerstick drop. Platelets are fine today. Elevated blood pressure Plan - 08/26/17 (Mirakian) Overall, Chapito's breathing appears to be improving slowly. He continues to require oxygen supplementation. Continue to wean as able with goal pulse oximetry 90-95%. He does not use oxygen at home currently. He was seen and evaluated by Dr. Trimble. Appreciate his time and expertise. Continue DuoNeb QID and Pulmicort BID treatments. Continue to encourage use of BiPAP at night and during sleep - he only used it briefly last night, but remained stable. Encourage incentive spirometry for pulmonary toileting. Will continue to wean solu-medrol and decrease to 62.5mg IV Q12 hours. May consider changing to oral prednisone in near future, prior to discharge. Hyperglycemia continues most likely secondary to steroid effect. Continue to monitor BGMs closely. Patient has a history of diet controlled DM and states average BGM at home is 150. Continue hospital initiated Novolog 4 units with meals as well as SSI as needed. Monitor closely for hypoglycemia. May consider further evaluation with A1c to truly assess control. Echocardiogram obtained 08/25/17 - revealed EF 55-60% with right atrial enlargement, mild-moderate MR, mild , AR and TR, and PAP at 40-45. IVC noted to be mildly enlarged consistent with current exam revealing mild fluid overload. Weight noted to be elevated 10 pounds since admission with 1+ edema to bilateral lower extremities. Will give Lasix 40mg IV now and continue with home Lasix of 40mg BID. Continue to monitor daily weight as well as I&O. Anticipate mild improvement in breathing with diuresis. Will add Mucinex LA for mucolytic effect. Continue Rocephin 1g IV daily for antimicrobial treatment of pulmonary pathogens. Sputum culture revealed normal respiratory erwin and strep viridans. Azithromycin was discontinued due to possible reaction to amiodarone. Continue to monitor closely on telemetry. Initiate Pepcid BID for GERD and GI protection. Patient was reluctantly seen and evaluated by PT. Continue to encourage participation in therapies. Anticipate discharge in near future. 08/26/2017-I reviewed this chart, the patient history, and the COPY DIRECTOR's/PA's documented findings as above. We discussed and formulated the assessment and plan as above with the additions below.-Dr. Mendes Patient was seen this evening. He states he's not feeling as well as yesterday but cannot say exactly why. He did not sleep very well and he didn't think the BiPAP fit as well last night as it did before. He said his mouth was very dry. His breathing seems to be better today. Blood sugars are quite high. He states that he takes metformin twice a day at home, but this was not on his home med list. I was called earlier today by the nurse who stated that when she woke him up around noon time to give him his medications he seemed confused and weak initially. The symptoms all resolved after several minutes. On exam he is alert and in no acute distress. Chest reveals some prolonged expiratory phase and mild rhonchi in the bases. Cardiovascular reveals a regular rate and rhythm. Abdomen is soft and nontender. Extremities reveal trace edema. Impression and plan Continue breathing treatments for COPD exacerbation. While off of BiPAP tonight. Check ABG in the morning. The patient can use oxygen as needed tonight to keep his sats 90% or above. Can place BiPAP if he is short of breath having difficulties. Due to severe hyperglycemia, will hold steroids at this time. Regarding poorly controlled diabetes. We'll start metformin 500 mg twice daily. He states he takes metformin 2 or 3 times a day at home. He does not know the dosage. It was not listed on his home med list. Will check hemoglobin A1c in the morning as well. Discussed echocardiogram today with cardiology. Discussed plans for ABG in the morning with pulmonology. DVT Prophylaxis: Lovenox GI Prophylaxis: Pepcid Resuscitation Status: Do Not Resuscitate - Time spent with patient Time with patient PN: 35 minutes - Physician Narrative Physician: Jing Ward MD Narrative: Date: 08/26/17 Time: 1328 Hospital Course Summary Disclaimer: The visit summary below is not to be considered part of the above Progress Note. Hospital Course: 08/23/17 Impression Sepsis- Leukocytosis, Elevated lactate, Hypoxia, Tachypneic Acute respiratory failure with hypoxia Elevated venous Lactate Elevated LFTs Hypernatremia- POA- 146 CAD with MA history Hypertension Type 2 DM A-Fib Plan Admit patient to inpatient status under the care of Dr. Mendes for sepsis, acute respiratory failure with hypoxia Initial lactate was elevated at 2.3. Will recheck serial lactate levels as per sepsis protocol Blood cultures were obtained in the emergency room. We will also obtain a sputum culture She has been on BiPAP during his stay in the emergency room. He was able to be weaned down to 30%. We will take him off BiPAP for transfer to the ICU. Would like to obtain an ABG at 1500. Dental DuoNeb 4 times a day and Pulmicort twice a day nebulizers 1/2 NS at 100ml/hr for gentle hydration He was given one time lasix dose of 20 mg while in the ER. He normally takes 40 milligrams of Lasix twice a day and Aldactone 25 daily. Will discuss further diuretic with attending. Monitor patient. Cardiac telemetry given coronary artery disease and history of atrial fibrillation. Will continue on normal. Amiodarone, digoxin and Coreg Lovenox SQ daily for DVT prophylaxis. Patient does wish to be a do not resuscitate and this orders written. Will discuss further orders and plan of care with attending, Dr Mendes At time of discharge medical care will return to primary care provider at the DC Plan - 08/26/17 (Mirakian) Overall, Chapito's breathing appears to be improving slowly. He continues to require oxygen supplementation. Continue to wean as able with goal pulse oximetry 90-95%. He does not use oxygen at home currently. He was seen and evaluated by Dr. Trimble. Appreciate his time and expertise. Continue DuoNeb QID and Pulmicort BID treatments. Continue to encourage use of BiPAP at night and during sleep - he only used it briefly last night, but remained stable. Encourage incentive spirometry for pulmonary toileting. Will continue to wean solu-medrol and decrease to 62.5mg IV Q12 hours. May consider changing to oral prednisone in near future, prior to discharge. Hyperglycemia continues most likely secondary to steroid effect. Continue to monitor BGMs closely. Patient has a history of diet controlled DM and states average BGM at home is 150. Continue hospital initiated Novolog 4 units with meals as well as SSI as needed. Monitor closely for hypoglycemia. May consider further evaluation with A1c to truly assess control. Echocardiogram obtained 08/25/17 - revealed EF 55-60% with right atrial enlargement, mild-moderate MR, mild , AR and TR, and PAP at 40-45. IVC noted to be mildly enlarged consistent with current exam revealing mild fluid overload. Weight noted to be elevated 10 pounds since admission with 1+ edema to bilateral lower extremities. Will give Lasix 40mg IV now and continue with home Lasix of 40mg BID. Continue to monitor daily weight as well as I&O. Anticipate mild improvement in breathing with diuresis. Will add Mucinex LA for mucolytic effect. Continue Rocephin 1g IV daily for antimicrobial treatment of pulmonary pathogens. Sputum culture revealed normal respiratory erwin and strep viridans. Azithromycin was discontinued due to possible reaction to amiodarone. Continue to monitor closely on telemetry. Initiate Pepcid BID for GERD and GI protection. Patient was reluctantly seen and evaluated by PT. Continue to encourage participation in therapies. Anticipate discharge in near future.
--- NOTE | 2017-08-26 14:18 | Echocardiogram ---
DATE OF PROCEDURE: 08/25/2017 PROCEDURE PERFORMED 2D echocardiogram with M-mode, color Doppler and full spectral Doppler assessment. FINDINGS 1. Left ventricle appears normal in size. Mild concentric left hypertrophy noted. No significant regional wall motion abnormality noted. Estimated LV ejection fraction 55-60%. The study is technically insufficient to assess diastolic dysfunction. 2. Right ventricle appears normal in size and thickness. Normal systolic function noted. 3. Mild left atrial enlargement noted. 4. Right atrium appears normal in size. 5. Mitral valve appears normal structurally. Mild mitral anular calcification noted. Mild to moderate mitral regurgitation noted. Posterior right eccentric jet noted. 6. Aortic valve appears mildly thickened with mildly reduced exertion noted. Mild aortic stenosis noted with peak gradient of 32 mmHg and mean gradient of 17 mmHg. Mild aortic regurgitation noted. 7. Tricuspid valve structurally appears normal. Mild tricuspid regurgitation noted. 8. Pulmonic valve physiologic pulmonary regurgitation noted. 9. IVC is dilated and less than 50% respirophasic variation noted. 10. Pulmonary artery. Estimated pulmonary artery pressure is 40-45 mmHg. CONCLUSION 1. Mild left ventricular concentric hypertrophy. 2. Normal LV function with 55-60% LV ejection fraction. 3. Mild to moderate mitral regurgitation. 4. Mild aortic stenosis, peak and mean gradient of 32/17. 5. Mild aortic regurgitation noted. 6. Mild tricuspid regurgitation noted. 7. IVC is dilated and less than 50% respirophasic variation noted.. 8. Estimated pulmonary artery systolic pressure of 40-45 mmHg. MTDD
[2017-08-26 15:55] VITALS: BMI 33.6
[2017-08-26] MEDS: CEFTRIAXONE 1 G in NS 100 ML IV SCH (16:09)
[2017-08-26] MEDS ORDERED: POLYETHYL GLYCOL 3350 17gm PACKET PO ONE (17:30)
[2017-08-26] MEDS: ASPIRIN, BUFFERED 325 MG TABLET PO SCH (20:21)
[2017-08-26] MEDS: GUAIFENESIN LA 600 MG TABLET PO SCH (20:21)
[2017-08-26] MEDS: SALINE FLUSH 10ml SYRINGE IVF PRN (20:21)
[2017-08-26] MEDS: FAMOTIDINE 20 MG TABLET PO SCH (20:21)
[2017-08-26] MEDS ORDERED: METHYLPREDNISOLONE SOD SUCC 125mg/2ml INJECTION IVP SCH ×2 (21:00)
[2017-08-27] MEDS: INSULIN ASPART 100unit/ml INJECTION SQ PRN ×4 (06:38→22:04)
[2017-08-27] MEDS: BUDESONIDE INH.SOLN 0.5mg/2ml NEB AEROSOL SCH ×2 (07:44→23:10)
[2017-08-27] MEDS: ALBUTEROL/IPRATROPIUM 2.5mg-0.5mg/3ml NEB AEROSOL SCH ×4 (07:45→23:10)
[2017-08-27] MEDS: INSULIN ASPART 100unit/ml INJECTION SQ SCH ×3 (08:23→16:46)
[2017-08-27] MEDS: FUROSEMIDE 40 MG TABLET PO SCH ×2 (08:23→22:02)
[2017-08-27] MEDS: POLYETHYL GLYCOL 3350 17gm PACKET PO SCH (08:23)
[2017-08-27] MEDS: SENNA + DOCUSATE TABLET PO SCH (08:23)
[2017-08-27] MEDS: FAMOTIDINE 20 MG TABLET PO SCH ×2 (08:23→22:03)
[2017-08-27] MEDS: GUAIFENESIN LA 600 MG TABLET PO SCH ×2 (08:23→22:03)
[2017-08-27] MEDS: SPIRONOLACTONE 25 MG TABLET PO SCH (08:24)
[2017-08-27] MEDS: ENOXAPARIN 40 MG/0.4 ML INJECTION SQ SCH (08:24)
[2017-08-27] MEDS: DIGOXIN 125 MCG TABLET PO SCH (08:24)
[2017-08-27] MEDS: AMIODARONE 200 MG TABLET PO SCH (08:25)
[2017-08-27] MEDS: CARVEDILOL 12.5 MG TABLET PO SCH (08:25)
[2017-08-27] MEDS: GEMFIBROZIL 600 MG TABLET PO SCH ×2 (08:26→16:46)
--- NOTE | 2017-08-27 12:01 | Pulmonology Progress Note ---
<JuliannEllen D - Last Filed: 08/27/17 11:56> Subjective Principal diagnosis: COPD exac, pna Interval history: Pt up to EOB, states he felt better after using the bipap the other day. Still with some SOB and cough with minimal sputum. Exam Vital signs: Temperature 97.1 F 08/27/17 07:59 Pulse Rate 70 08/27/17 10:58 Respiratory Rate 15 08/27/17 07:46 Blood Pressure 134/69 08/27/17 07:59 Pulse Oximetry 91 08/27/17 10:58 - Constitutional no acute distress, obese - Routine HEENT Exam Head: Present: normocephalic, atraumatic Eye: Present: EOMI, PERRL ENT: Present: mucous membranes moist - Routine Neck Exam Present: supple, full ROM - Routine Respiratory Exam Present: decreased breath sounds - Routine Cardiovascular Exam Present: RRR, S1, S2, no murmur - Routine Abdominal Exam Present: soft, normoactive bowel sounds - Routine Extremities Exam Present: edema, non tender, full ROM - Routine Back/Spine/Pelvis Exam Back/Spine: Present: full ROM - Routine Skin Exam Present: intact, dry - Routine Neurological Exam Present: alert, oriented X3, CN II-XII intact - Routine Psychiatric Exam Present: normal affect, normal thought process Assessment and Plan - Assessment and Plan Acute Hypoxic Respiratory Failure COPD exacerbation CAP Hx of afib on amio Plan: Pt currently on O2 at 1L per NC, tolerating (no O2 at home), wean to keep sats 90-95%. off bipap last noc for ABG 7.3//, would recommend home NIPPV at night and prn at home for chronic hypercapnic respiratory failure from COPD due to increased risk of decompensation and even . bipap ruled out. Pt willing to use as he feels better with it. Settings here f12, 15/4. Currently on pulmicort BID, A/A QID, solumedrol q12 change to prednisone, no wheezing noted. On Rocephin for pna, azithro stopped 2/2 poss reaction to amio, last CXR still with R infiltrate but improving, follow. Pt will need OP follow up with our clinic and have a full PFT completed. Will continue to follow. - Time Spent With Patient Total time spent is greater than 50% in coordination of care (as documented) at patient's floor/unit and/or counseling patient: less than 15 minutes <Jacques Beard - Last Filed: 08/27/17 16:00> Exam Vital signs: Temperature 97.1 F 08/27/17 07:59 Pulse Rate 70 08/27/17 10:58 Respiratory Rate 14 08/27/17 12:04 Blood Pressure 134/69 08/27/17 07:59 Pulse Oximetry 91 08/27/17 10:58 Assessment and Plan (1) Acute and chronic respiratory failure with hypercapnia Status: Acute Assessment and plan: O2 at 1L per NC, tolerating (no O2 at home), wean to keep sats 90-95%. He slept without bipap last noc and ABG worsened to 7.3/58/62. Therefore we would recommend home NIPPV at night and prn at home for chronic hypercapnic respiratory failure from COPD due to increased risk of decompensation and even . bipap ruled out. Pt willing to use as he feels better with it. Settings here f12, 13/12. Current Visit: Yes (2) COPD exacerbation Status: Acute Current Visit: Yes - Time Spent With Patient Total time spent is greater than 50% in coordination of care (as documented) at patient's floor/unit and/or counseling patient:
[2017-08-27] MEDS: PredniSONE 20 MG TABLET PO SCH (12:14)
--- NOTE | 2017-08-27 15:59 | Progress Note ---
- Date 08/27/17 Subjective: Chapito is seen today in follow up. He voices concern about going home on oxygen. We discussed possible options such as IRU or SNU. He has been able to wean down to 1 liters of oxygen however does having wheezing and coughing during inhalation. Denies having pain. Objective Vital signs: Temperature 97.1 F 08/27/17 07:59 Pulse Rate 70 08/27/17 10:58 Respiratory Rate 14 08/27/17 12:04 Blood Pressure 134/69 08/27/17 07:59 Pulse Oximetry 91 08/27/17 10:58 Rhythm: Atrial Fibrillation with Normal Ventricular Rate Height/Weight/BMI: Height 1.78 m Weight 106.8 kg Body Mass Index 33.6 - Constitutional Present: no acute distress, well nourished, well developed - Routine HEENT Exam Eye: Present: EOMI ENT: Present: mucous membranes moist, dentition normal - Routine Respiratory Exam Present: wheezes - Routine Cardiovascular Exam Present: RRR, S1, S2. Absent: murmur - Routine Abdominal Exam Present: soft, normoactive bowel sounds, non distended. Absent: tenderness - Routine Extremities Exam Present: normal capillary refill - Routine Skin Exam Present: dry, warm - Routine Neurological Exam Present: alert, oriented X3, CN II-XII intact, moving all extremities - Routine Lymphatic Exam Lymphatic: Absent: adenopathy - Routine Psychiatric Exam Present: normal affect, cooperative Results - Labs CBC & Chem 7: 08/27/17 04:10 08/27/17 04:10 Microbiology Results: Microbiology 08/23/17 13:09 Peripheral/Iv Start Blood Culture - Preliminary No Growth After 4 Days 08/23/17 16:50 Sputum, Expectorated Gram Stain - Final 08/23/17 16:50 Sputum, Expectorated Sputum Culture - Final Normal Respiratory Erwin Streptococcus viridans group 08/23/17 16:50 Urine Legionella Urinary Antigen - Final 08/23/17 16:50 Urine Streptococcus pneumoniae Antigen (M - Final - ABG Interpretation ABG results: 08/27/17 09:30 ABG pH 7.380 ABG pCO2 58 H ABG pO2 62 L ABG HCO3 34 H ABG Total CO2 36.1 H ABG O2 Saturation 91.0 L ABG Base Excess 7.4 H Assessment and Plan Assessment and Plan: Impression Acute hypoxic and hypercapnic respiratory failure-hypercapnia appears to be compensated at this time Community-acquired pneumonia-Rocephin initiated. He received 1 dose of azithromycin. This was not continued because of possible interaction with amiodarone. Probable COPD. Possible COPD exacerbation Probable chronic CO2 retention. Patient may benefit from BiPAP at night. Severe sepsis with elevated lactate and acute hypoxic respiratory failure, tachypnea, leukocytosis Known coronary artery disease with hx of VT and cabg type 2 diabetes mellitus with hyperglycemia-worse today with steroids Mild hypernatremia-resolved History of A. fib Elevated transaminases Possible thrombocytopenia-likely falsely low secondary to fingerstick drop. Platelets are fine today. Elevated blood pressure Plan Able to wean down to 1 liter however continues to have wheezing. Continue DuoNeb QID and Pulmicort BID treatments. Continue to encourage use of BiPAP at night and during sleep - appreciate pulmonary consultation Was changed to PO prednisone 40 mg daily He is interested in IRU for strengthening as his goal is to return home independently DVT Prophylaxis: Lovenox Resuscitation Status: Do Not Resuscitate - Time spent with patient Time with patient PN: 25 minutes - Physician Narrative Physician: Donn May MD Narrative: Date: 08/27/17 Time: 1844 Have independently interviewed and examined pt. Chart reviewed. 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 Care plan developed with my supervision; agree with above. Breathing improving slowly-still feels SOA with talking. O2 helping that significantly. Strength very diminished-tired and winded with activities, difficult to be up and moving in room. Eating well. No nausea or ab pain. Lungs: decreased, upper airway noises. CV: regular Ext: +2 edema. MSE: awake alert Plan: With increased sugars will give a one time dose of 10 units of Lantus this evening. Prednisone started by pulmonology. CO2 on BMP increased - used O2 and not BiPAP last night. Dr Beard recommending BiPAP to help respiratory status. Will give 500mg of Diamox as CO2 increased and weight has trended up despite Lasix use. Do feel Bipap with help significantly with edema. Encourage PT/OT. Check into IRU evaluation secondary to significant debility patient has. Recheck BMP in am due to Medication use. Hospital Course Summary Disclaimer: The visit summary below is not to be considered part of the above Progress Note. Hospital Course: 08/23/17 Impression Sepsis- Leukocytosis, Elevated lactate, Hypoxia, Tachypneic Acute respiratory failure with hypoxia Elevated venous Lactate Elevated LFTs Hypernatremia- POA- 146 CAD with VT history Hypertension Type 2 DM A-Fib Plan Admit patient to inpatient status under the care of Dr. Mendes for sepsis, acute respiratory failure with hypoxia Initial lactate was elevated at 2.3. Will recheck serial lactate levels as per sepsis protocol Blood cultures were obtained in the emergency room. We will also obtain a sputum culture She has been on BiPAP during his stay in the emergency room. He was able to be weaned down to 30%. We will take him off BiPAP for transfer to the ICU. Would like to obtain an ABG at 1500. Dental DuoNeb 4 times a day and Pulmicort twice a day nebulizers 1/2 NS at 100ml/hr for gentle hydration He was given one time lasix dose of 20 mg while in the ER. He normally takes 40 milligrams of Lasix twice a day and Aldactone 25 daily. Will discuss further diuretic with attending. Monitor patient. Cardiac telemetry given coronary artery disease and history of atrial fibrillation. Will continue on normal. Amiodarone, digoxin and Coreg Lovenox SQ daily for DVT prophylaxis. Patient does wish to be a do not resuscitate and this orders written. Will discuss further orders and plan of care with attending, Dr Mendes At time of discharge medical care will return to primary care provider at the [place] Plan - 08/26/17 ([place]) Overall, Chapito's breathing appears to be improving slowly. He continues to require oxygen supplementation. Continue to wean as able with goal pulse oximetry 90-95%. He does not use oxygen at home currently. He was seen and evaluated by Dr. Trimble. Appreciate his time and expertise. Continue DuoNeb QID and Pulmicort BID treatments. Continue to encourage use of BiPAP at night and during sleep - he only used it briefly last night, but remained stable. Encourage incentive spirometry for pulmonary toileting. Will continue to wean solu-medrol and decrease to 62.5mg IV Q12 hours. May consider changing to oral prednisone in near future, prior to discharge. Hyperglycemia continues most likely secondary to steroid effect. Continue to monitor BGMs closely. Patient has a history of diet controlled DM and states average BGM at home is 150. Continue hospital initiated Novolog 4 units with meals as well as SSI as needed. Monitor closely for hypoglycemia. May consider further evaluation with A1c to truly assess control. Echocardiogram obtained 08/25/17 - revealed EF 55-60% with right atrial enlargement, mild-moderate MR, mild , AR and TR, and PAP at 40-45. IVC noted to be mildly enlarged consistent with current exam revealing mild fluid overload. Weight noted to be elevated 10 pounds since admission with 1+ edema to bilateral lower extremities. Will give Lasix 40mg IV now and continue with home Lasix of 40mg BID. Continue to monitor daily weight as well as I&O. Anticipate mild improvement in breathing with diuresis. Will add Mucinex LA for mucolytic effect. Continue Rocephin 1g IV daily for antimicrobial treatment of pulmonary pathogens. Sputum culture revealed normal respiratory erwin and strep viridans. Azithromycin was discontinued due to possible reaction to amiodarone. Continue to monitor closely on telemetry. Initiate Pepcid BID for GERD and GI protection. Patient was reluctantly seen and evaluated by PT. Continue to encourage participation in therapies. Anticipate discharge in near future. 08/27/17 Plan Able to wean down to 1 liter however continues to have wheezing. Continue DuoNeb QID and Pulmicort BID treatments. Continue to encourage use of BiPAP at night and during sleep - appreciate pulmonary consultation Was changed to PO prednisone 40 mg daily He is interested in IRU for strengthening as his goal is to return home independently
[2017-08-27] MEDS: CEFTRIAXONE 1 G in NS 100 ML IV SCH (16:08)
[2017-08-27] MEDS ORDERED: CEFTRIAXONE 2 GM INJECTION IM SCH (16:45)
[2017-08-27] MEDS: METFORMIN 500 MG TABLET PO SCH (16:46)
[2017-08-27] MEDS ORDERED: acetaZOLAMIDE 250 MG TABLET PO ONE (18:03)
[2017-08-27] MEDS ORDERED: INSULIN GLARGINE 100unit/ml INJECTION SQ ONE (21:00)
[2017-08-27] MEDS: ASPIRIN, BUFFERED 325 MG TABLET PO SCH (22:03)
[2017-08-27] MEDS: SALINE FLUSH 10ml SYRINGE IVF PRN (22:08)
[2017-08-28] MEDS: ALBUTEROL/IPRATROPIUM 2.5mg-0.5mg/3ml NEB AEROSOL SCH ×4 (07:10→19:55)
[2017-08-28] MEDS: BUDESONIDE INH.SOLN 0.5mg/2ml NEB AEROSOL SCH ×2 (07:10→19:55)
[2017-08-28] MEDS: INSULIN ASPART 100unit/ml INJECTION SQ PRN ×4 (07:25→15:03)
[2017-08-28] MEDS: PredniSONE 20 MG TABLET PO SCH (08:30)
[2017-08-28] MEDS: CARVEDILOL 12.5 MG TABLET PO SCH (08:30)
[2017-08-28] MEDS: FUROSEMIDE 40 MG TABLET PO SCH ×2 (08:31→23:23)
[2017-08-28] MEDS: GUAIFENESIN LA 600 MG TABLET PO SCH ×2 (08:32→23:21)
[2017-08-28] MEDS: SENNA + DOCUSATE TABLET PO SCH (08:32)
--- NOTE | 2017-08-28 08:32 | XRay Report ---
INDICATION: f/u PROCEDURE: CHEST 2-VIEWS UPRIGHT (PA & LAT) Encounter: Initial COMPARISON: August 26, 2017 FINDINGS: Stable appearance of the chest with residual bilateral areas of lower lobe consolidation and mild pulmonary vascular prominence. No new or worsening airspace disease. No pneumothorax. Trace effusions are stable. Heart size and mediastinal contours are unchanged. Prior CABG and left pacemaker. Impression: Stable appearance of the chest. .
[2017-08-28] MEDS: METFORMIN 500 MG TABLET PO SCH ×2 (08:33→17:59)
[2017-08-28] MEDS: FAMOTIDINE 20 MG TABLET PO SCH ×2 (08:33→23:22)
[2017-08-28] MEDS: SPIRONOLACTONE 25 MG TABLET PO SCH (08:33)
[2017-08-28] MEDS: AMIODARONE 200 MG TABLET PO SCH (08:33)
[2017-08-28] MEDS: INSULIN ASPART 100unit/ml INJECTION SQ SCH ×3 (08:34→17:59)
[2017-08-28] MEDS: GEMFIBROZIL 600 MG TABLET PO SCH ×2 (08:34→17:59)
[2017-08-28] MEDS: ENOXAPARIN 40 MG/0.4 ML INJECTION SQ SCH (08:35)
[2017-08-28] MEDS: POLYETHYL GLYCOL 3350 17gm PACKET PO SCH (08:36)
[2017-08-28] MEDS: DIGOXIN 125 MCG TABLET PO SCH (08:42)
[2017-08-28] MEDS ORDERED: acetaZOLAMIDE 250 MG TABLET PO ONE (08:57)
--- NOTE | 2017-08-28 11:22 | Pulmonology Progress Note ---
Subjective Principal diagnosis: COPD exac, pna Interval history: Pt in bed, states he is feeling ok, seems a little sleepy today. States he didn' t use the bipap last noc, slight cough and sputum noted. Exam Vital signs: Temperature 96.2 F L 08/28/17 07:39 Pulse Rate 70 08/28/17 08:42 Respiratory Rate 18 08/28/17 07:39 Blood Pressure 130/66 08/28/17 07:39 Pulse Oximetry 99 08/28/17 07:39 - Constitutional no acute distress, obese - Routine HEENT Exam Head: Present: normocephalic, atraumatic Eye: Present: EOMI, PERRL ENT: Present: mucous membranes moist - Routine Neck Exam Present: supple, full ROM, trachea midline - Routine Respiratory Exam Present: decreased breath sounds - Routine Cardiovascular Exam Present: RRR, S1, S2, no murmur - Routine Abdominal Exam Present: normoactive bowel sounds - Routine Extremities Exam Present: edema, non tender, full ROM - Routine Back/Spine/Pelvis Exam Back/Spine: Present: full ROM - Routine Skin Exam Present: intact, dry - Routine Neurological Exam Present: alert, oriented X3, CN II-XII intact - Routine Psychiatric Exam Present: normal affect, normal thought process Assessment and Plan - Assessment and Plan Acute Hypoxic Respiratory Failure COPD exacerbation CAP Hx of afib on amio Plan: Pt currently on O2 at 1L per NC, tolerating (no O2 at home), wean to keep sats 90-95%. off bipap last noc, last ABG 7.3//, would recommend home NIPPV ( trilogy vent) at night and prn at home for chronic hypercapnic respiratory failure from COPD due to increased risk of decompensation and even . bipap ruled out. Pt willing to use as he feels better with it. Settings here f12, 15/4 , he needs to adhere to regimen here before I order NIPPV. Currently on pulmicort BID, A/A QID, and prednisone, no wheezing noted. On Rocephin for pna, azithro stopped 2/2 poss reaction to amio, CXr with basilar infiltrates and congestion but stable, follow. Pt will need OP follow up with our clinic and have a full PFT completed. Will continue to follow. - Time Spent With Patient Total time spent is greater than 50% in coordination of care (as documented) at patient's floor/unit and/or counseling patient: less than 15 minutes
[2017-08-28] MEDS: CEFTRIAXONE 1 G in NS 100 ML IV SCH (15:02)
[2017-08-28] MEDS: SALINE FLUSH 10ml SYRINGE IVF PRN (15:03)
--- NOTE | 2017-08-28 15:28 | Progress Note ---
- Date 08/28/17 Subjective: Pravin is seen this afternoon while on Bi-pap napping. He is sleeping and will arouse during exam. He shakes his head "no" when asked about pain. Vital signs have been normal. Fasting BGM this morning was slightly elevated at 240. No difficulty with urination. Objective Vital signs: Temperature 96.2 F L 08/28/17 07:39 Pulse Rate 70 08/28/17 08:42 Respiratory Rate 22 08/28/17 11:30 Blood Pressure 130/66 08/28/17 07:39 Pulse Oximetry 95 08/28/17 11:30 Height/Weight/BMI: Height 1.78 m Weight 107.4 kg Body Mass Index 33.6 - Constitutional Present: well nourished, well developed - Routine HEENT Exam Eye: Present: EOMI ENT: Present: mucous membranes moist, dentition normal - Routine Respiratory Exam Present: diminished air movement - Routine Cardiovascular Exam Present: RRR. Absent: murmur - Routine Abdominal Exam Present: soft, normoactive bowel sounds, non distended. Absent: tenderness - Routine Extremities Exam Present: normal capillary refill - Routine Skin Exam Present: dry, warm - Routine Neurological Exam Present: alert, oriented X3, CN II-XII intact - Routine Lymphatic Exam Lymphatic: Absent: adenopathy - Routine Psychiatric Exam Present: normal affect Results - Labs CBC & Chem 7: 08/28/17 04:34 08/28/17 04:34 Microbiology Results: Microbiology 08/23/17 13:09 Peripheral/Iv Start Blood Culture - Final No Growth After 5 Days 08/23/17 16:50 Sputum, Expectorated Gram Stain - Final 08/23/17 16:50 Sputum, Expectorated Sputum Culture - Final Normal Respiratory Erwin Streptococcus viridans group 08/23/17 16:50 Urine Legionella Urinary Antigen - Final 08/23/17 16:50 Urine Streptococcus pneumoniae Antigen (M - Final - ABG Interpretation ABG results: 08/27/17 09:30 ABG pH 7.380 ABG pCO2 58 H ABG pO2 62 L ABG HCO3 34 H ABG Total CO2 36.1 H ABG O2 Saturation 91.0 L ABG Base Excess 7.4 H Assessment and Plan Assessment and Plan: Impression Acute hypoxic and hypercapnic respiratory failure-hypercapnia appears to be compensated at this time Community-acquired pneumonia-Rocephin initiated. He received 1 dose of azithromycin. This was not continued because of possible interaction with amiodarone. Probable COPD. Possible COPD exacerbation Probable chronic CO2 retention. Patient may benefit from BiPAP at night. Severe sepsis with elevated lactate and acute hypoxic respiratory failure, tachypnea, leukocytosis Known coronary artery disease with hx of TN and cabg type 2 diabetes mellitus with hyperglycemia-worse today with steroids Mild hypernatremia-resolved History of A. fib Elevated transaminases Possible thrombocytopenia-likely falsely low secondary to fingerstick drop. Platelets are fine today. Elevated blood pressure Plan Continue with Bipap as recommended by Pulmonary. uses 1 liter by n/c at rest. Continue DuoNeb QID and Pulmicort BID treatments. Continue to monitor Accu-Cheks. Was changed to PO prednisone 40 mg daily Plan will be home with HH when ready for discharge - Time spent with patient Time with patient PN: 25 minutes - Physician Narrative Physician: Donn May MD Narrative: Date: 08/28/17 Time: 1516 Have independently interviewed and examined pt. Chart reviewed. Case discussed with CM. Care plan developed with my supervision; agree with above. Doing okay this evening. Did sleep for long interval this afternoon on BiPAP. Tolerated well; feels does help. Eating well. Moving more. Lungs: decreased, no distress CV: regular MSE: awake alert Plan: Patient declined by IRU and Skilled at [facility] due to him being to functional. Becoming more adherent with BiPAP - pulm will set him up for home vent if they know he will be adherent. Repeat CXR showing stability. WBC with decrease. Encourage activities and ambulation. Likely home with Home Health in near future. Hospital Course Summary Disclaimer: The visit summary below is not to be considered part of the above Progress Note. Hospital Course: 08/23/17 Impression Sepsis- Leukocytosis, Elevated lactate, Hypoxia, Tachypneic Acute respiratory failure with hypoxia Elevated venous Lactate Elevated LFTs Hypernatremia- POA- 146 CAD with TN history Hypertension Type 2 DM A-Fib Plan Admit patient to inpatient status under the care of Dr. Mendes for sepsis, acute respiratory failure with hypoxia Initial lactate was elevated at 2.3. Will recheck serial lactate levels as per sepsis protocol Blood cultures were obtained in the emergency room. We will also obtain a sputum culture She has been on BiPAP during his stay in the emergency room. He was able to be weaned down to 30%. We will take him off BiPAP for transfer to the ICU. Would like to obtain an ABG at 1500. Dental DuoNeb 4 times a day and Pulmicort twice a day nebulizers 1/2 NS at 100ml/hr for gentle hydration He was given one time lasix dose of 20 mg while in the ER. He normally takes 40 milligrams of Lasix twice a day and Aldactone 25 daily. Will discuss further diuretic with attending. Monitor patient. Cardiac telemetry given coronary artery disease and history of atrial fibrillation. Will continue on normal. Amiodarone, digoxin and Coreg Lovenox SQ daily for DVT prophylaxis. Patient does wish to be a do not resuscitate and this orders written. Will discuss further orders and plan of care with attending, Dr Mendes At time of discharge medical care will return to primary care provider at the [place] Plan - 08/26/17 ([place]) Overall, Chapito's breathing appears to be improving slowly. He continues to require oxygen supplementation. Continue to wean as able with goal pulse oximetry 90-95%. He does not use oxygen at home currently. He was seen and evaluated by Dr. Trimble. Appreciate his time and expertise. Continue DuoNeb QID and Pulmicort BID treatments. Continue to encourage use of BiPAP at night and during sleep - he only used it briefly last night, but remained stable. Encourage incentive spirometry for pulmonary toileting. Will continue to wean solu-medrol and decrease to 62.5mg IV Q12 hours. May consider changing to oral prednisone in near future, prior to discharge. Hyperglycemia continues most likely secondary to steroid effect. Continue to monitor BGMs closely. Patient has a history of diet controlled DM and states average BGM at home is 150. Continue hospital initiated Novolog 4 units with meals as well as SSI as needed. Monitor closely for hypoglycemia. May consider further evaluation with A1c to truly assess control. Echocardiogram obtained 08/25/17 - revealed EF 55-60% with right atrial enlargement, mild-moderate MR, mild , AR and TR, and PAP at 40-45. IVC noted to be mildly enlarged consistent with current exam revealing mild fluid overload. Weight noted to be elevated 10 pounds since admission with 1+ edema to bilateral lower extremities. Will give Lasix 40mg IV now and continue with home Lasix of 40mg BID. Continue to monitor daily weight as well as I&O. Anticipate mild improvement in breathing with diuresis. Will add Mucinex LA for mucolytic effect. Continue Rocephin 1g IV daily for antimicrobial treatment of pulmonary pathogens. Sputum culture revealed normal respiratory erwin and strep viridans. Azithromycin was discontinued due to possible reaction to amiodarone. Continue to monitor closely on telemetry. Initiate Pepcid BID for GERD and GI protection. Patient was reluctantly seen and evaluated by PT. Continue to encourage participation in therapies. Anticipate discharge in near future. 08/27/17 Plan Able to wean down to 1 liter however continues to have wheezing. Continue DuoNeb QID and Pulmicort BID treatments. Continue to encourage use of BiPAP at night and during sleep - appreciate pulmonary consultation Was changed to PO prednisone 40 mg daily He is interested in IRU for strengthening as his goal is to return home independently 08/28/17 Plan Continue with Bipap as recommended by Pulmonary. uses 1 liter by n/c at rest. Continue DuoNeb QID and Pulmicort BID treatments. Continue to monitor Accu-Cheks. Was changed to PO prednisone 40 mg daily Plan will be home with HH when ready for discharge
[2017-08-28] MEDS: ASPIRIN, BUFFERED 325 MG TABLET PO SCH (23:23)
[2017-08-29] MEDS: ALBUTEROL/IPRATROPIUM 2.5mg-0.5mg/3ml NEB AEROSOL SCH ×2 (07:15→11:02)
[2017-08-29] MEDS: BUDESONIDE INH.SOLN 0.5mg/2ml NEB AEROSOL SCH (07:15)
[2017-08-29 07:17] VITALS: RESP 18
[2017-08-29 07:36] VITALS: BP 130/61; PULSE 73; TEMP 96.5
[2017-08-29] MEDS: INSULIN ASPART 100unit/ml INJECTION SQ PRN ×2 (07:38→12:55)
[2017-08-29] MEDS: POLYETHYL GLYCOL 3350 17gm PACKET PO SCH (08:37)
[2017-08-29] MEDS: INSULIN ASPART 100unit/ml INJECTION SQ SCH ×2 (08:38→12:55)
[2017-08-29] MEDS: GUAIFENESIN LA 600 MG TABLET PO SCH (08:39)
[2017-08-29] MEDS: AMIODARONE 200 MG TABLET PO SCH (08:39)
[2017-08-29] MEDS: SPIRONOLACTONE 25 MG TABLET PO SCH (08:39)
[2017-08-29] MEDS: GEMFIBROZIL 600 MG TABLET PO SCH (08:40)
[2017-08-29] MEDS: PredniSONE 20 MG TABLET PO SCH (08:40)
[2017-08-29] MEDS: SENNA + DOCUSATE TABLET PO SCH (08:40)
[2017-08-29] MEDS: CARVEDILOL 12.5 MG TABLET PO SCH (08:40)
[2017-08-29] MEDS: ENOXAPARIN 40 MG/0.4 ML INJECTION SQ SCH (08:40)
[2017-08-29] MEDS: FAMOTIDINE 20 MG TABLET PO SCH (08:40)
[2017-08-29] MEDS: METFORMIN 500 MG TABLET PO SCH (08:40)
[2017-08-29] MEDS: FUROSEMIDE 40 MG TABLET PO SCH (08:41)
[2017-08-29] MEDS: DIGOXIN 125 MCG TABLET PO SCH (08:47)
[2017-08-29] MEDS ORDERED: acetaZOLAMIDE 250 MG TABLET PO ONE (10:47)
[2017-08-29 11:04] VITALS: O2SAT 84
--- NOTE | 2017-08-29 12:08 | Progress Note ---
- Date 08/29/17 Subjective: F/U: Acute hypoxic and hypercapnic respiratory failure, Community-acquired pneumonia Doing okay. Breathing fair-needing O2, but helping. More adherent with BiPAP ventilator. Less cough, congestion. Eating well. Bowels moving. Urinating well. Objective Vital signs: Temperature 96.5 F L 08/29/17 07:33 Pulse Rate 73 08/29/17 11:04 Respiratory Rate 18 08/29/17 11:00 Blood Pressure 130/61 08/29/17 07:33 Pulse Oximetry 84 L 08/29/17 11:04 Rhythm: Atrial Fibrillation with Normal Ventricular Rate Height/Weight/BMI: Height 1.78 m Weight 107.4 kg Body Mass Index 33.6 - Constitutional Present: well nourished, well developed, average body habitus, obese - Routine HEENT Exam Head: Present: normocephalic, atraumatic Eye: Present: EOMI, PERRL ENT: Present: mucous membranes moist - Routine Respiratory Exam Present: decreased breath sounds, prolonged expiratory phase, distant breath sounds, diminished air movement. Absent: respiratory distress, wheezes - Routine Cardiovascular Exam Present: irregular rhythm, irregularly irregular - Routine Abdominal Exam Present: soft, non distended, non tender. Absent: guarding - Routine Extremities Exam Present: edema (+1 BLE ). Absent: cyanosis, clubbing - Routine Musculoskeletal Exam Musculoskeletal: Present: no clubbing or cyanosis, normal strength - Routine Skin Exam Present: dry, warm - Routine Neurological Exam Present: alert, CN II-XII intact, moving all extremities, vision grossly intact , hearing grossly intact, normal speech. Absent: motor deficit - Routine Psychiatric Exam Present: normal affect Results - Labs CBC & Chem 7: 08/28/17 04:34 08/29/17 04:22 Microbiology Results: Microbiology 08/23/17 13:09 Peripheral/Iv Start Blood Culture - Final No Growth After 5 Days 08/23/17 16:50 Sputum, Expectorated Gram Stain - Final 08/23/17 16:50 Sputum, Expectorated Sputum Culture - Final Normal Respiratory Erwin Streptococcus viridans group 08/23/17 16:50 Urine Legionella Urinary Antigen - Final 08/23/17 16:50 Urine Streptococcus pneumoniae Antigen (M - Final Assessment and Plan (1) Severe sepsis Current visit: Yes Status: Acute (2) Community acquired pneumonia Current visit: Yes Status: Acute (3) Acute and chronic respiratory failure with hypercapnia Current visit: Yes Status: Acute Assessment and Plan: Impression Severe sepsis with elevated lactate and acute hypoxic respiratory failure, tachypnea, leukocytosis - resolved Acute hypoxic and hypercapnic respiratory failure Community-acquired pneumonia Probable COPD. Possible COPD exacerbation Probable chronic CO2 retention. Coronary artery disease Type 2 diabetes mellitus Steroid induced hyperglycemia Hypernatremia (POA) - resolved History of A. fib Elevated transaminases (POA) - resolved HTN Generalized debility Obesity BMI 34.0 Plan Will discharge to home. Course of antibiotics completed during hospitalization. Continue with Prednisone 20mg daily for 5 days. Mucinex LA and Acapella routinely for 1 week, then as needed for cough and congestion. IS QID to help pulmonary toilet. Arrangements for home O2 made: Will need 3L O2 at rest, with activities, and when sleeping. Will need to follow with Dr Beard in 1-2 weeks: Initiation of home NIPPV (trilogy vent) at night and prn at home for chronic hypercapnic respiratory failure from COPD due to increased risk of decompensation and even . BIPAP ruled out. Pt willing to use as he feels better with it. Settings here f12, 15/4. Will need full PFT completed. Home health arrangements made. Will need follow up with Dr Sky at [place] in 1 week. See orders for details. Case discussed with CM and nursing. Time spent with patient care and discharger greater than 30 minutes. DVT Prophylaxis: Lovenox Resuscitation Status: Do Not Resuscitate - Physician Narrative Physician: Donn May MD Narrative: Date: 08/29/17 Time: 1205 Hospital Course Summary Disclaimer: The visit summary below is not to be considered part of the above Progress Note. Hospital Course: 08/23/17 Impression Sepsis- Leukocytosis, Elevated lactate, Hypoxia, Tachypneic Acute respiratory failure with hypoxia Elevated venous Lactate Elevated LFTs Hypernatremia- POA- 146 CAD with [place] history Hypertension Type 2 DM A-Fib Plan Admit patient to inpatient status under the care of Dr. Mendes for sepsis, acute respiratory failure with hypoxia Initial lactate was elevated at 2.3. Will recheck serial lactate levels as per sepsis protocol Blood cultures were obtained in the emergency room. We will also obtain a sputum culture She has been on BiPAP during his stay in the emergency room. He was able to be weaned down to 30%. We will take him off BiPAP for transfer to the ICU. Would like to obtain an ABG at 1500. Dental DuoNeb 4 times a day and Pulmicort twice a day nebulizers 1/2 NS at 100ml/hr for gentle hydration He was given one time lasix dose of 20 mg while in the ER. He normally takes 40 milligrams of Lasix twice a day and Aldactone 25 daily. Will discuss further diuretic with attending. Monitor patient. Cardiac telemetry given coronary artery disease and history of atrial fibrillation. Will continue on normal. Amiodarone, digoxin and Coreg Lovenox SQ daily for DVT prophylaxis. Patient does wish to be a do not resuscitate and this orders written. Will discuss further orders and plan of care with attending, Dr Mendes At time of discharge medical care will return to primary care provider at the [place] Plan - 08/26/17 (Jayro) Overall, Chapito's breathing appears to be improving slowly. He continues to require oxygen supplementation. Continue to wean as able with goal pulse oximetry 90-95%. He does not use oxygen at home currently. He was seen and evaluated by Dr. Trimble. Appreciate his time and expertise. Continue DuoNeb QID and Pulmicort BID treatments. Continue to encourage use of BiPAP at night and during sleep - he only used it briefly last night, but remained stable. Encourage incentive spirometry for pulmonary toileting. Will continue to wean solu-medrol and decrease to 62.5mg IV Q12 hours. May consider changing to oral prednisone in near future, prior to discharge. Hyperglycemia continues most likely secondary to steroid effect. Continue to monitor BGMs closely. Patient has a history of diet controlled DM and states average BGM at home is 150. Continue hospital initiated Novolog 4 units with meals as well as SSI as needed. Monitor closely for hypoglycemia. May consider further evaluation with A1c to truly assess control. Echocardiogram obtained 08/25/17 - revealed EF 55-60% with right atrial enlargement, mild-moderate MR, mild , AR and TR, and PAP at 40-45. IVC noted to be mildly enlarged consistent with current exam revealing mild fluid overload. Weight noted to be elevated 10 pounds since admission with 1+ edema to bilateral lower extremities. Will give Lasix 40mg IV now and continue with home Lasix of 40mg BID. Continue to monitor daily weight as well as I&O. Anticipate mild improvement in breathing with diuresis. Will add Mucinex LA for mucolytic effect. Continue Rocephin 1g IV daily for antimicrobial treatment of pulmonary pathogens. Sputum culture revealed normal respiratory erwin and strep viridans. Azithromycin was discontinued due to possible reaction to amiodarone. Continue to monitor closely on telemetry. Initiate Pepcid BID for GERD and GI protection. Patient was reluctantly seen and evaluated by PT. Continue to encourage participation in therapies. Anticipate discharge in near future. 08/27/17 Plan Able to wean down to 1 liter however continues to have wheezing. Continue DuoNeb QID and Pulmicort BID treatments. Continue to encourage use of BiPAP at night and during sleep - appreciate pulmonary consultation Was changed to PO prednisone 40 mg daily He is interested in IRU for strengthening as his goal is to return home independently 08/28/17 Plan Continue with Bipap as recommended by Pulmonary. uses 1 liter by n/c at rest. Continue DuoNeb QID and Pulmicort BID treatments. Continue to monitor Accu-Cheks. Was changed to PO prednisone 40 mg daily Plan will be home with HH when ready for discharge 08/29/17 Will discharge to home. Course of antibiotics completed during hospitalization. Continue with Prednisone 20mg daily for 5 days. Mucinex LA and Acapella routinely for 1 week, then as needed for cough and congestion. IS QID to help pulmonary toilet. Arrangements for home O2 made: Will need 3L O2 at rest, with activities, and when sleeping. Will need to follow with Dr Beard in 1-2 weeks: Initiation of home NIPPV (trilogy vent) at night and prn at home for chronic hypercapnic respiratory failure from COPD due to increased risk of decompensation and even . BIPAP ruled out. Pt willing to use as he feels better with it. Settings here f12, 15/. Will need full PFT completed. Home health arrangements made. Will need follow up with Dr Sky at [place] in 1 week. See orders for details.
--- NOTE | 2017-08-29 13:32 | Discharge Summary ---
Discharge Information Date of admission: 08/23/17 13:03 Anticipated date of discharge: 08/29/17 Attending Physician: Donn May MD Consults: Physician Consult: Jacques Beard PT/OT - Discharge Diagnosis (1) Severe sepsis Status: Acute (2) Community acquired pneumonia Status: Acute (3) Acute and chronic respiratory failure with hypercapnia Status: Acute Discharge diagnosis Severe sepsis with elevated lactate and acute hypoxic respiratory failure, tachypnea, leukocytosis - resolved Associated conditions and complications Acute hypoxic and hypercapnic respiratory failure Community-acquired pneumonia Probable COPD. Possible COPD exacerbation Probable chronic CO2 retention. Coronary artery disease Type 2 diabetes mellitus Steroid induced hyperglycemia Hypernatremia (POA) - resolved History of A. fib Elevated transaminases (POA) - resolved HTN Generalized debility Obesity BMI 34.0 - Procedures Procedures: Date of Exam: 08/25/17 Type of Exam: US echo doppler complete FINDINGS 1. Left ventricle appears normal in size. Mild concentric left hypertrophy noted. No significant regional wall motion abnormality noted. Estimated LV ejection fraction 55-60%. The study is technically insufficient to assess diastolic dysfunction. 2. Right ventricle appears normal in size and thickness. Normal systolic function noted. 3. Mild left atrial enlargement noted. 4. Right atrium appears normal in size. 5. Mitral valve appears normal structurally. Mild mitral anular calcification noted. Mild to moderate mitral regurgitation noted. Posterior right eccentric jet noted. 6. Aortic valve appears mildly thickened with mildly reduced exertion noted. Mild aortic stenosis noted with peak gradient of 32 mmHg and mean gradient of 17 mmHg. Mild aortic regurgitation noted. 7. Tricuspid valve structurally appears normal. Mild tricuspid regurgitation noted. 8. Pulmonic valve physiologic pulmonary regurgitation noted. 9. IVC is dilated and less than 50% * * blunting noted. 10. Pulmonary artery. Estimated pulmonary artery pressure is 40-45 mmHg. CONCLUSION 1. Mild left ventricular concentric hypertrophy. 2. Normal LV function with 55-60% LV ejection fraction. 3. Mild to moderate mitral regurgitation. 4. Mild aortic stenosis, peak and mean gradient of 32/17. 5. Mild aortic regurgitation noted. 6. Mild tricuspid regurgitation noted. 7. Dilated IVC with less than 50% * * variation. 8. Estimated pulmonary artery systolic pressure of 40-45 mmHg. - Laboratory Labs: Admit Lab 08/23/17 11:07 WBC 13.7 H Hgb 15.7 Hct 50.7 MCV 99.0 Plt Count 257 Neut % (Auto) 67.8 H Lymph % (Auto) 20.9 L Admit Lab 08/23/17 08/23/17 11:07 11:46 Sodium 146 H Potassium 4.6 Chloride 102 Carbon Dioxide 32 H Anion Gap 12 BUN 18.0 Creatinine 0.7 L GFR Calculation 110 Glucose 217 H Calculated Osmolality 290 H Total Bilirubin 0.80 AST 75 H ALT 86 H Troponin I 0.068 B-Natriuretic Peptide 722 H Total Protein 7.8 Albumin 4.6 Globulin 3.2 Albumin/Globulin Ratio 1.4 Plasma Lactate 2.3 H Laboratory Tests 08/23/17 15:25 ABG pH 7.370 ABG pCO2 59 H ABG pO2 93 ABG HCO3 34 H ABG Total CO2 35.9 H ABG O2 Saturation 97.0 O2 Delivery Method Nasal cannula, liter FiO2 (liters per min) 2.0 Laboratory Tests 08/27/17 04:10 Hemoglobin A1c 7.6 H Laboratory Tests 08/23/17 13:22 Digoxin 1.5 08/28/17 04:34 08/29/17 04:22 - Microbiology Microbiology 08/23/17 13:09 Peripheral/Iv Start Blood Culture - Final No Growth After 5 Days 08/23/17 16:50 Sputum, Expectorated Gram Stain - Final 08/23/17 16:50 Sputum, Expectorated Sputum Culture - Final Normal Respiratory Erwin Streptococcus viridans group 08/23/17 16:50 Urine Legionella Urinary Antigen - Final 08/23/17 16:50 Urine Streptococcus pneumoniae Antigen (M - Final - Radiology Radiology: Date of Exam: 08/23/17 PROCEDURE: XR chest 1V Findings: Increased interstitial markings bilaterally with hazy opacities in both lower lobes. Overlying monitoring leads. Left pacemaker defibrillator. Postoperative changes of prior CABG. Incidental note is made of an azygos fissure. No pneumothorax or definite pleural effusion. Cardiac silhouette is moderately enlarged. Mediastinal contours are within normal limits. Pulmonary vascularity is prominent. Impression: Mild to moderate pulmonary edema. Atelectasis or developing pneumonia in the lower lobes is possible. Date of Exam: 08/24/17 PROCEDURE: XR chest 1V Findings: Increasing airspace disease in the right lower lobe. Hazy groundglass opacity in the right upper lobe as well. No pneumothorax or definite effusion. Left basilar atelectasis is more prominent. Cardiac silhouette remains enlarged. Mediastinal contours are stable. Pulmonary vascularity remains mildly prominent. Left pacemaker defibrillator and post sternotomy changes. Impression: Increasing right-sided airspace disease. Date of Exam: 08/26/17 PROCEDURE: CHEST 2-VIEWS UPRIGHT (PA & LAT) FINDINGS: Improving aeration of the right lung with decreasing density of consolidation. Persistent bilateral lower lobe infiltrates with small effusions. No pneumothorax or worsening airspace disease. Cardiac silhouette remains enlarged. Left pacemaker defibrillator and poststernotomy changes. Mediastinal contours are stable. Pulmonary vascular congestion has improved. Impression: Improving pneumonia with decreasing edema. Date of Exam: 08/26/17 PROCEDURE: CHEST 2-VIEWS UPRIGHT (PA & LAT) FINDINGS: Improving aeration of the right lung with decreasing density of consolidation. Persistent bilateral lower lobe infiltrates with small effusions. No pneumothorax or worsening airspace disease. Cardiac silhouette remains enlarged. Left pacemaker defibrillator and poststernotomy changes. Mediastinal contours are stable. Pulmonary vascular congestion has improved. Impression: Improving pneumonia with decreasing edema. History of Present Illness HPI: Pravin is a 72 yr old male who woke up this morning , shortness of breath. Called EMS as he felt he needed acute evaluation, he was found to have room air saturations of 80%. He was placed on oxygen transported to [facility] for further evaluation and treatment. Labs did reveal leukocytosis with a white count of 13.7, 67% neutrophils. Sodium is elevated at 146, calcium 4.6, glucose 217, LFTs slightly elevated, troponin 0.068. Digoxin 1.5, Respiratory panel is pending. Chest x-ray done with pending read. He was started on Rocephin and azithromycin for antimicrobial coverage. He was placed on BiPAP for additional respiratory support. Given the severity of his hypoxia. Will services were contacted and accepted patient for inpatient admission for further evaluation and treatment. It is expected that his stay will be greater than 2 overnights. For complete details of the H&P refer to that document. Objective Vital signs: Temperature 96.5 F L 08/29/17 07:33 Pulse Rate 73 08/29/17 11:04 Respiratory Rate 18 08/29/17 11:00 Blood Pressure 130/61 08/29/17 07:33 Pulse Oximetry 84 L 08/29/17 11:04 Rhythm: Atrial Fibrillation with Normal Ventricular Rate Height/Weight/BMI: Height 1.78 m Weight 107.4 kg Body Mass Index 33.6 Hospital Course This is a general summary of the patient's hospital course. For more details refer to the complete medical record. Hospital course: 08/23/17 Impression Sepsis- Leukocytosis, Elevated lactate, Hypoxia, Tachypneic Acute respiratory failure with hypoxia Elevated venous Lactate Elevated LFTs Hypernatremia- POA- 146 CAD with [place] history Hypertension Type 2 DM A-Fib Plan Admit patient to inpatient status under the care of Dr. Mendes for sepsis, acute respiratory failure with hypoxia Initial lactate was elevated at 2.3. Will recheck serial lactate levels as per sepsis protocol Blood cultures were obtained in the emergency room. We will also obtain a sputum culture She has been on BiPAP during his stay in the emergency room. He was able to be weaned down to 30%. We will take him off BiPAP for transfer to the ICU. Would like to obtain an ABG at 1500. Dental DuoNeb 4 times a day and Pulmicort twice a day nebulizers 1/2 NS at 100ml/hr for gentle hydration He was given one time lasix dose of 20 mg while in the ER. He normally takes 40 milligrams of Lasix twice a day and Aldactone 25 daily. Will discuss further diuretic with attending. Monitor patient. Cardiac telemetry given coronary artery disease and history of atrial fibrillation. Will continue on normal. Amiodarone, digoxin and Coreg Lovenox SQ daily for DVT prophylaxis. Patient does wish to be a do not resuscitate and this orders written. Will discuss further orders and plan of care with attending, Dr Mendes At time of discharge medical care will return to primary care provider at the [place] Plan - 08/26/17 (Jayro) Overall, Chapito's breathing appears to be improving slowly. He continues to require oxygen supplementation. Continue to wean as able with goal pulse oximetry 90-95%. He does not use oxygen at home currently. He was seen and evaluated by Dr. Trimble. Appreciate his time and expertise. Continue DuoNeb QID and Pulmicort BID treatments. Continue to encourage use of BiPAP at night and during sleep - he only used it briefly last night, but remained stable. Encourage incentive spirometry for pulmonary toileting. Will continue to wean solu-medrol and decrease to 62.5mg IV Q12 hours. May consider changing to oral prednisone in near future, prior to discharge. Hyperglycemia continues most likely secondary to steroid effect. Continue to monitor BGMs closely. Patient has a history of diet controlled DM and states average BGM at home is 150. Continue hospital initiated Novolog 4 units with meals as well as SSI as needed. Monitor closely for hypoglycemia. May consider further evaluation with A1c to truly assess control. Echocardiogram obtained 08/25/17 - revealed EF 55-60% with right atrial enlargement, mild-moderate MR, mild , AR and TR, and PAP at 40-45. IVC noted to be mildly enlarged consistent with current exam revealing mild fluid overload. Weight noted to be elevated 10 pounds since admission with 1+ edema to bilateral lower extremities. Will give Lasix 40mg IV now and continue with home Lasix of 40mg BID. Continue to monitor daily weight as well as I&O. Anticipate mild improvement in breathing with diuresis. Will add Mucinex LA for mucolytic effect. Continue Rocephin 1g IV daily for antimicrobial treatment of pulmonary pathogens. Sputum culture revealed normal respiratory erwin and strep viridans. Azithromycin was discontinued due to possible reaction to amiodarone. Continue to monitor closely on telemetry. Initiate Pepcid BID for GERD and GI protection. Patient was reluctantly seen and evaluated by PT. Continue to encourage participation in therapies. Anticipate discharge in near future. 08/27/17 Plan Able to wean down to 1 liter however continues to have wheezing. Continue DuoNeb QID and Pulmicort BID treatments. Continue to encourage use of BiPAP at night and during sleep - appreciate pulmonary consultation Was changed to PO prednisone 40 mg daily He is interested in IRU for strengthening as his goal is to return home independently 08/28/17 Plan Continue with Bipap as recommended by Pulmonary. uses 1 liter by n/c at rest. Continue DuoNeb QID and Pulmicort BID treatments. Continue to monitor Accu-Cheks. Was changed to PO prednisone 40 mg daily Plan will be home with HH when ready for discharge 08/29/17 Will discharge to home. Course of antibiotics completed during hospitalization. Continue with Prednisone 20mg daily for 5 days. Mucinex LA and Acapella routinely for 1 week, then as needed for cough and congestion. IS QID to help pulmonary toilet. Arrangements for home O2 made: Will need 3L O2 at rest, with activities, and when sleeping. Will need to follow with Dr Beard in 1-2 weeks: Initiation of home NIPPV (trilogy vent) at night and prn at home for chronic hypercapnic respiratory failure from COPD due to increased risk of decompensation and even . BIPAP ruled out. Pt willing to use as he feels better with it. Settings here [facility], 13/12. Will need full PFT completed. Home health arrangements made. Will need follow up with Dr Sky at [place] in 1 week. See orders for details. Time spent with patient: discharge greater than 30 minutes DVT Prophylaxis: Lovenox Discharge Plan - Discharge Disposition Discharge Date: 08/29/17 Disposition: 86 Home Health Service *Condition: Stable for Transport Reason For Visit (Visit label in EMR): sepsis,hypoxia - Discharge Medications *Discharge Medications: New Guaifenesin LA [Mucinex LA] 1,200 mg PO BID tablet Metformin [Glucophage] 500 mg PO BIDWM tablet PredniSONE [Deltasone] 20 mg PO WB #5 tablet Continue Carvedilol 12.5 mg PO DAILY #0 diazePAM [Diazepam] 10 mg PO DAILY PRN #0 PRN Reason: Prn Orders Spironolactone [Aldactone] 25 mg PO DAILY #0 Digoxin 125 mcg PO DAILY #0 Aspirin/Calcium Carbonate/Mag [Aspirin Buffered 325 mg Tab] 325 mg PO HS Albuterol Sulfate 2.5 mg AEROSOL Q4H PRN PRN Reason: Shortness Of Air/Wheezing Potassium Chloride 10 meq PO DAILY Amiodarone [Pacerone] 200 mg PO DAILY #0 Gemfibrozil [Lopid] 600 mg PO BID Furosemide [Lasix] 40 mg PO BID - Discharge Packet/Instructions *Diet: 2000 KCAL ADA low sodium *Activity: As tolerated *Pain Management/Treatment: Continue prior pain medications as before hospitalization *Wound Care: N/A Additional Instructions: Use Mucinex LA twice a day for 1 week to help thin secreations. Use Acapella 4 times a day for 1 week to help clear secreations, then as needed. Use Oxygen at 3L continously. *Expected Signs/Symptoms: Improvement of streghth and breathing. *Notify Physician if: Temp >100.4. Increasing difficulty breathing. *During Business Hours Contact: Dr Sky at [place]. *After Business Hours Contact: Call [facility] and have Dr Sky or covering provider contacted. *Pending Lab/Results: No Pending Lab - Referrals/Follow Up *Referrals/Follow Up: Jacques Beard MD [Physician] - 1 Week (Will need outpatient PFT. Need to be set up for home ventalor. ) Trevor Sky MD [Physician] - 1 Week (Hospital follow up for Sepsis/pneumonia /hypercapnic-hypoxic respiratory failure. ) - Patient Handouts Patient Handouts: Sepsis (GEN), Hypoxia (GEN) - Dismissal Complete Discharge Instructions are:: Complete Physician Narrative - Narrative Physician: Donn May MD Attestation Narrative: Date: 08/29/17 Time: 4090 I have independently interviewed and examined patient prior to discharge. See my progress note from today for details. Medically stable for discharge to home with home health.
--- NOTE | 2017-09-02 07:00 | Echocardiogram ---
DATE OF PROCEDURE: August 25, 2017 REFERRING PHYSICIAN: Dr. Jing Mendes This is a two-dimensional echo with spectral Doppler, color-flow and M-mode. It was obtained in a patient with hypoxia and coronary artery disease. Left atrium is dilated. Left ventricular end-diastolic dimension is increased. Left ventricle wall thickness is at the upper limits of normal. Inferior wall is akinetic with ejection fraction of about 40-45%. Right atrium is normal. Right ventricle is normal. Aortic root dimension is increased. Mitral valve is morphologically normal with mild to moderate mitral regurgitation. Aortic valve is a trileaflet structure with fibrocalcific changes with restriction on opening motion. Transaortic velocities are increased with peak velocity of 2.7 m/sec with peak gradient of 29 and mean gradient of 15. Aortic valve area is calculated at 1.51 cm2. Moderate aortic insufficiency is present. Tricuspid valve shows moderate tricuspid regurgitation with moderate pulmonary hypertension with estimated pulmonary artery systolic pressure of 53. Pulmonary valve shows no pulmonary insufficiency. There is no pericardial effusion. IMPRESSION 1. Inferior akinesia with ejection fraction of about 40-45%. 2. Mild aortic stenosis with a valve area of 1.5 cm2. 3. Moderate aortic insufficiency. 4. Left atrial dilation. 5. Igtr-ea-kjeokvut mitral regurgitation. 6. Aortic root dilation at 4 cm. 7. Moderate tricuspid regurgitation with moderate pulmonary hypertension with estimated pulmonary artery systolic pressure of 53. MTDD
== END 2017-08-29 15:25 | disposition home health service (06) | DRG 871 ==
LOC: ED 11:00 → CCU 13:03 → SUATTDRO 13:03 → CCU 14:20 → MED 08-25 15:49
PROVIDERS: ADMIT Internal Medicine; ATTEND Hospitalist